=== PATIENT | male | born 1940 | race Caucasian/White ===

== ENCOUNTER 2016-07-26 17:43 | Inpatient (IN) | payer MEDICARE, OTHER ==
[2016-07-26 18:30] LABS: Hematocrit 37.1 % (42.0-52.0); Hemoglobin 12.8 gm/dL (13.5-18.0); Mean Cell Volume 85.9 fl (78-100); Mean Corpuscular Hemoglobin 29.6 pg (27-31); Mean Corpuscular Hgb Conc 34.5 g/dl (32-36); Mean Platelet Volume 9.4 fl (6.0-9.5); Platelet Count 366 K/mm3 (150-450); Red Blood Count 4.32 M/mm3 (4.7-6.0); Red Cell Distribution Width 12.2 % (11.5-14.0); White Blood Count 21.9 K/mm3 (4.0-10.5)
[2016-07-26 18:41] LABS: Total Cells Counted 100
[2016-07-26 18:43] LABS: Albumin * 2.6 gm/dl (3.4-5.0); Anion Gap 18.3 mmol/L (6.8-13.8); Bilirubin, Total 0.3 mg/dL (0.0-1.1); Ca. Corrected For Albumin 10.1 mg/dL (8.4-10.2); Calcium * 9.3 mg/dL (7.9-10.9); Carbon Dioxide 25.6 mmol/L (24-32.6); Potassium 3.9 mmol/L (3.4-4.6); Total Protein 7.2 gm/dL (6.2-8.2)
[2016-07-26 18:59] LABS: Atypical (Reactive) Lymph 2 % (0-2); Eosinophil 1 % (0-3); Immature Granulocyte 1 (0-1); Lymphocyte 10 % (20-51); Monocyte 4 % (0-9); Neutrophil 82 % (42-75); Platelet Estimate Normal (NORMAL)
[2016-07-26 19:00] LABS: RBC Morphology Normal (NORMAL)
[2016-07-26 19:01] LABS: Dohle Bodies 1+; Toxic Granulation 2+
[2016-07-26 20:04] LABS: Troponin I Less than 0.017 ng/ml (0.00-0.10)
--- OUTSIDE RECORDS SUMMARY | 2016-07-26 20:05 | XMS REPORT | Continuity of Care Document ---
:1940 Author Organization [facility] ([facility]) Address [address] [place] [address] Phone [phone] Care Team Providers Name Role Phone Provider, No-Primary Care Primary Care Provider Unavailable Source Comments This disclosure is being made pursuant to the Care Everywhere program, applicable federal and state laws, and may not contain all informaitonavailable regarding this patient.[facility] ([facility]) Active Allergies and Adverse Reactions Allergen Noted Date Severity Reactions Comments Penicillins Urticaria (Hives) Penicillins 05/27/2012 Urticaria (Hives) Tetanus Toxoid, Adsorbed OTHER per outside records Current Medications Prescription Sig. Disp. Refills Start Date End Date Status albuterol 90 Use 2 Puffs by 1 Inhaler 09/22/2012 Active mcg/Actuation inhaler inhalation every 6 hours as needed. Indications: CHRONIC OBSTRUCTIVE PULMONARY DISEASE fosinopril 10 mg Take 1 tablet (10 30 tablet 08/26/2015 Active tablet mg total) by mouth daily. furosemide 20 mg Take 1 tablet (20 60 tablet 08/26/2015 Active tablet mg total) by mouth daily. simvastatin 20 mg Take 1 tablet (20 30 tablet 08/26/2015 Active tablet mg total) by mouth every evening. spironolactone 25 mg Take 1 tablet (25 60 tablet 08/26/2015 Active tablet mg total) by mouth 2 times daily. tiotropium (SPIRIVA) Use 1 capsule by 30 capsule 08/26/2015 Active 18 mcg inhalation inhalation daily. capsule sildenafil 20 mg Take 3-5 tablets 30 tablet 10/10/2015 Active tablet (60-100 mg total) by mouth daily as needed. SYMBICORT 160-4.5 INHALE TWO PUFFS 6 g 03/09/2016 Active mcg/Actuation inhaler TWICE DAILY digoxin 125 mcg Take 1 tablet (125 30 tablet 11 06/04/2016 Active tablet mcg total) by mouth daily. Active Problems Problem Noted Date COPD (chronic obstructive pulmonary disease) 12/21/2012 CHF (congestive heart failure) 12/21/2012 Most Recent Encounters Date Type Specialty Providers Description 07/07/2016 Telephone [place] - Primary Mariana Chandler LPN 06/24/2016 Telephone [place] - Primary Adrienne Pickard Chief Comp: Miguelina Merrill LPN for Prescription 06/18/2016 Office Visit [place] Nick Jarrell, Dx: 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 (Primary Dx) 06/04/2016 Refill Juliano Akers - [facility] Nick Domingo Dx: Chronic systolic DO heart failure (Primary Dx) Immunizations Name Dates Previously Given Next Due Pneumococcal Polysaccharide, PPSV23 (Pneumovax 23) 12/29/2012 Social History Tobacco Use Types Packs/Day Years Used Date Former Smoker Cigarettes 3 50 Quit: 05/12/2008 Smokeless Tobacco: Former User Quit: 12/01/2012 Last Filed Vital Signs Vital Sign Reading Time Taken Blood Pressure 114/44 06/18/2016 10:44 AM CDT Pulse 108 06/18/2016 10:44 AM CDT Temperature 36.9 C (98.5 F) 06/18/2016 10:44 AM CDT Respiratory Rate 20 06/18/2016 10:44 AM CDT Height 1.753 m (5' 9") 03/30/2013 1:22 PM 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
[2016-07-26 20:22] LABS: BNP * 213 pg/mL (5-650)
--- NOTE | 2016-07-26 20:25 | ERNOTE ---
Medical Problem HPI - Narrative Date of Service: 07/26/16 - General Chief Complaint: General Assessment Time Seen by Provider: 07/26/16 19:45 Source: patient Exam Limitations: no limitations - Immun/Allergies/Home Medications Immunizations: IMMUNIZATION HX History of Influenza Vaccine Yes Allergies/Adverse Reactions: Allergies penicillin G Allergy (Verified 07/26/16 17:56) Home Medications: HOME MEDICATIONS Budesonide/Formoterol Fumarate [Symbicort 160-4.5 Mcg Inhaler] 2 puff IH BID [Last Taken Unknown] Digoxin [Lanoxin] 0.125 mg PO DAILY 07/26/16 [Last Taken Unknown] Fosinopril Sodium 10 mg PO DAILY 07/26/16 [Last Taken Unknown] Furosemide [Lasix] 20 mg PO DAILY 07/26/16 [Last Taken Unknown] Simvastatin [Zocor] 20 mg PO HS 07/26/16 [Last Taken Unknown] Spironolactone [Aldactone] 12.5 mg PO BID@0900,1700 07/26/16 [Last Taken Unknown ] Tiotropium [place] [Spiriva] 1 cap IH DAILY 07/26/16 [Last Taken Unknown] predniSONE [Prednisone] 10 mg PO DAILY 07/26/16 [Last Taken Unknown] - History of Present History Narrative: Pt. comes in with c/o SOB, chest tightness, increased urination, increased forgetfulness, and increased falls. Pt. has a hx of CAD, CHF, and COPD, pt states he uses o2 at [facility]. Review of Systems - Review of Systems Constitutional: Present: no symptoms reported. Absent: recent illness, fever, chills, weakness, fatigue, malaise EYE: Present: no symptoms reported ENT: Present: no symptoms reported Respiratory: Present: shortness of breath, cough. Absent: wheezing Cardiology: Present: chest pain. Absent: palpitations, edema Gastrointestinal/Abdominal: Present: no symptoms reported. Absent: nausea, vomiting, diarrhea, abdominal pain Genitourinary: Present: frequency. Absent: pain, dysuria, decreased urinary output Musculoskeletal: Present: no symptoms reported. Absent: back pain, joint pain Skin: Present: no symptoms reported. Absent: rash, dryness, change in color Neurological: Present: no symptoms reported. Absent: headache, dizziness/light- headedness, numbness, tingling All Other Systems: All systems neg except as marked - Patient's Past Medical History Patient History - Medical: No pertinent hx Patient History - Cardiac/Respiratory: CHF, COPD, Hypertension, Hyperlipidemia Patient History - Cancer: No Hx of Cancer Patient History - Surgical Procedures: No surgical history Patient History - Other: None - Social History Living Situations: home Psych History: No pertinent hx Smoking Status: Former smoker Have you smoked in the past 12 months: No Alcohol Use: none Drug Use: none - Immunizations History of Influenza Vaccine: Yes Physical Exam - Physical Exam General Appearance: Present: wd/wn, alert, no apparent distress Eye Exam: Normal inspection: bilateral, PERRL: bilateral, EOMI: bilateral Ears, Nose, Throat: Present: normal ENT inspection, normal pharynx Neck: Present: normal inspection, nontender. Absent: lymphadenopathy (R), lymphadenopathy (L) Respiratory: Present: no respiratory distress, no accessory muscle use, decreased breath sounds Cardiovascular/Chest: Present: regular rate, rhythm, normal peripheral pulses, systolic murmur Gastrointestinal/Abdominal: Present: normal bowel sounds, nontender, nondistended, soft, no organomegaly Back Exam: Present: normal inspection, normal range of motion, no CVA tenderness , no vertebral tenderness Extremity Exam: Present: normal inspection, non-tender, normal range of motion, no edema Neurological Exam: Present: alert, oriented, normal mood/affect, no motor/ sensory deficits Skin Exam: Present: normal color, warm/dry. Absent: pallor, skin rash ED Progress - Date and Time Seen: Date and Time: 07/26/16 22:44 Discussed case with Betty and she agrees to admit pt. for pneumonia and sepsis. - Results and Orders Patient's Lab Results:: I have reviewed the patient's lab results. - Vital Signs Patient's Vital Signs:: I have reviewed the patient's vital signs. Vital Signs: Vital Signs 07/26/16 07/26/16 17:46 19:30 Temperature 36.4 C L Pulse Rate 115 H 111 H Respiratory 12 20 Rate Blood Pressure 105/58 124/68 O2 Sat by Pulse 95 93 Oximetry - EKG EKG: other - sinus tach - X-Ray X-Ray #1 X-Ray: chest Interpretation: Reviewed by me X-ray Comments: IMPRESSION: 1. Left hilar prominence as detailed above. If concern persists consider CT scan. 2. Nodular density right midlung measuring approximately 8 mm[address] chest CT may be advised 3. Appearance of posterior mediastinal mass again should be evaluated with CT scan - CT/Ultrasound CT/Ultrasound Narrative: CT chest with Focal consolidation LLL and pulmonary nodules and mediastinal lymphadenopathy. - Progress/Reassessment Chief Complaint: General Assessment Progress:: Unchanged Departure - Departure Clinical Impression: Pneumonia Qualifiers: Pneumonia type: due to unspecified organism Laterality: left Lung location: lower lobe of lung Qualified Code(s): J18.1 - Lobar pneumonia, unspecified organism Sepsis Qualifiers: Sepsis type: sepsis due to unspecified organism Qualified Code(s): A41.9 - Sepsis, unspecified organism Disposition: [facility] Condition: Serious Referrals: Nick Domingo DO [Primary Care Provider] -
[2016-07-26] MEDS ORDERED: NORMAL SALINE 1,000 ML IV ONE (20:46)
[2016-07-26 20:57] LABS: Urine Bilirubin Negative (NEGATIVE); Urine Blood Negative /ul (NEGATIVE); Urine Ketone Negative (NEGATIVE); Urine Nitrite Negative (NEGATIVE); Urine Protein Negative (NEGATIVE); Urine Specific Gravity 1.015 SP.GR. (1.005-1.030); Urine Urobilinogen Normal (NORMAL); Urine pH 5.5 pH (5.0-7.0)
[2016-07-26 21:06] LABS: Urine Appearance Clear; Urine Color Yellow
[2016-07-26 21:07] LABS: Urine Bacteria None Seen; Urine Hyaline Cast 0-5 /LPF; Urine RBC None Seen /hpf (0-5); Urine WBC None Seen /hpf (0-5)
--- OUTSIDE RECORDS SUMMARY | 2016-07-26 22:51 | XMS REPORT | Continuity of Care Document ---
:1940 Author Organization [facility] ([facility]) Address [address] [place] [address] Phone [phone] Care Team Providers Name Role Phone Provider, No-Primary Care Primary Care Provider Unavailable Source Comments This disclosure is being made pursuant to the Care Everywhere program, applicable federal and state laws, and may not contain all informaitonavailable regarding this patient.[facility] ([facility]) Active Allergies and Adverse Reactions Allergen [...] - Primary Mariana Chandler LPN 06/24/2016 Telephone [place] - Primary Adrienne Pickard Chief Comp: Miguelina Merrill LPN for Prescription 06/18/2016 Office Visit [place] Nick Jarrell, Dx: 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 (Primary Dx) 06/04/2016 Refill Juliano Akers - [facility] Nick Domingo Dx: Chronic systolic DO heart [...] 1.753 m (5' 9") 03/30/2013 1:22 PM MANAGER ATHLETICS Weight 83.371 kg (183 lb 12.8 oz) 06/18/2016 10:44 AM CDT Body Mass Index 27.13 06/18/2016 10:44 AM CDT Oxygen Saturation 93% 02/07/2015 11:49 AM MANAGER ATHLETICS Plan of Care Health Maintenance Due Date [...]
[2016-07-26] MEDS: LEVOFLOXACIN/D5W 750 MG/150 ML BAG IV SCH (22:59)
[2016-07-26] MEDS ORDERED: ACETAMINOPHEN 325 MG TABLET ONE (23:06)
[2016-07-26] MEDS: ACETAMINOPHEN 325 MG TABLET PO PRN (23:07)
[2016-07-27] MEDS: NORMAL SALINE 1,000 ML IV PRN ×3 (00:21→23:12)
--- NOTE | 2016-07-27 00:39 | HP ---
<Betty Purcell - Last Filed: 07/27/16 02:30> Chief Complaint - Chief Complaint Date of Service: 07/27/16 Time of Service: 00:36 Chief Complaint: SOB History of Present Illness: Pt is a 75 year old male pt of Dr. Domingo who presented to the ER with multiple nonspecific complaints this evening. He states all of which began about a month ago, complaints include SOB, increased urination and hesitancy, increased forgetfulness (per ), increased falls, bilateral shoulder pain, and decreased appetite. Pt has a hx of a-fib, CHF, HTN, and COPD-uses o2 at HS. Upon further questioning he also endorses +wt loss, +dizziness, +cold sweats at night, +poor appetite, trouble sleeping due to urine frequency. Denies n/v/d, fever, cough, wheezing, hematuria/foul odor/dysuria, or CP. 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 In the ER workup revealed LL consolidation, lactic acidosis(3.2), leukocytosis (WBC 21.9), hypotension (SBP 90-100), and tachycardia (HR 100-120). He will need to be admitted to in pt for further testing and treatment starting with sepsis protocol. I suspect that he will require greater than a 2 midnight stay. - Patient's Past Medical History Patient History - Medical: Alcohol Abuse, Arthritis Patient History - Cardiac/Respiratory: Atrial Fibrillation, CHF, COPD, Hypertension, Hyperlipidemia, Home O2 Use Patient History - Cancer: No Hx of Cancer Patient History - Surgical Procedures: No surgical history Patient History - Other: None - Family History Mother Family History - Medical: Family History - Cardiac/Respiratory: Coronary Heart Disease, COPD Father Family History - Medical: Family History - Cardiac/Respiratory: COPD, Myocardial Infarction Family History - Cancer: Lung - Social History Living Situations: home Psych History: No pertinent hx Smoking Status: Former smoker Have you smoked in the past 12 months: No Alcohol Use: heavy - 1-2 glasses of wine and 2-3 mixed drinks Drug Use: none - Immunizations Immunizations Up to Date: Yes Hx Pneumococcal Vaccination: Yes History of Influenza Vaccine: Yes Review Of Systems (GEN) - Review of Systems Generalized/Overall Review: Present: Weakness, Chills, Fatigue, Weight loss EENTM: Present: Nose Congestion Respiratory: Present: Shortness of Breath Cardiac: Present: No Symptoms Reported Abdominal: Present: No Symptoms Reported Genitourinary: Present: Frequency, Hesitancy, Dribbling, Nocturia Musculoskeletal: Present: Joint Pain Neurological: Present: No Symptoms Reported Skin: Present: No Symptoms Reported Endocrine: Present: No Symptoms Reported Immunizations: IMMUNIZATION HX History of Influenza Vaccine Yes Allergies/Adverse Reactions: Allergies Allergy/AdvReac Type Severity Reaction Status Date / Time penicillin G Allergy Verified 07/26/16 17:56 Home Medications: HOME MEDICATIONS Budesonide/Formoterol Fumarate [Symbicort 160-4.5 Mcg Inhaler] 2 puff IH BID [Last Taken Unknown] Digoxin [Lanoxin] 0.125 mg PO DAILY 07/26/16 [Last Taken Unknown] Fosinopril Sodium 10 mg PO DAILY 07/26/16 [Last Taken Unknown] Furosemide [Lasix] 20 - 40 mg PO DAILY 07/26/16 [Last Taken Unknown] Simvastatin [Zocor] 20 mg PO HS 07/26/16 [Last Taken Unknown] Spironolactone [Aldactone] 25 mg PO BID@0900,1700 07/26/16 [Last Taken Unknown] Tiotropium [place] [Spiriva] 1 cap IH DAILY 07/26/16 [Last Taken Unknown] predniSONE [Prednisone] 10 mg PO DAILY 07/26/16 [Last Taken Unknown] Exam - Exam Vital Signs: Vital Signs - Last Taken Temp 37.0 C 07/27/16 00:05 Pulse 117 H 07/27/16 00:05 Resp 20 07/27/16 00:05 BP 145/63 07/27/16 00:05 Pulse Ox 92 RA 07/27/16 00:05 Constitutional: Present: Alert, Oriented x3, Cooperative, No distress, Elderly, Overweight ENT Exam: Present: normal ENT inspection, hearing grossly normal Eye Exam: bilateral eye: normal inspection, PERRL Back Exam: Present: normal inspection Respiratory: Present: chest non-tender, lungs clear, no respiratory distress, no accessory muscle use, decreased breath sounds Cardiovascular/Chest: Present: normal peripheral pulses, no chest tenderness, no edema, no gallop, no JVD, no murmur Peripheral Pulses: dorsalis-pedis (R): 2+, dorsalis-pedis (L): 2+, radial (R): 2 +, radial (L): 2+ Abdomen: Present: Normal bowel sounds, soft, nontender, nondistended, no rebound tenderness, no hepatospenomegaly Extremity: Present: normal inspection, no calf tenderness, normal capillary refill, claudication, other - left should with limited ROM d/t pain. No erythema or warmth appreciated Skin Exam: Present: normal color, warm/dry, no cyanosis Lymphatic: Present: no adenopathy Neurologic: Present: no motor/sensory deficits, alert, normal mood/affect, oriented x 3 Appearance: Present: appropriate appearance, appropriate insight, neat, no memory impairment Eye contact: Present: cooperative, good eye contact, normal speech Thoughts: Present: normal thought pattern, no apparent hallucination Diagnostic Studies: Abnormal Lab Results 07/26/16 07/26/16 Range/Units 22:55 22:55 Lactic Acid, Venous 2.2 H* (0.4-1.9) mmol/L Ethyl Alcohol 22.0 H (0.0-10.0) mg/dL Laboratory Results Laboratory Tests 07/26/16 07/26/16 07/26/16 18:26 18:26 19:44 WBC 21.9 H RBC 4.32 L Hgb 12.8 L Hct 37.1 L Plt Count 366 Neutrophils % (Manual) 82 H Lymphocytes % (Manual) 10 L Neutrophils # (Manual) 18.0 H Sodium 129 L Potassium 3.9 Chloride 89 L Carbon Dioxide 25.6 Anion Gap 18.3 H BUN 21 D Creatinine 1.00 Lactic Acid, Venous 3.2 H* Total Bilirubin 0.3 AST 49 H Troponin I B-Natriuretic Peptide Urine Color Urine Ketones Ur Leukocyte Esterase Urine Bacteria Ethyl Alcohol 07/26/16 07/26/16 07/26/16 20:01 20:20 22:55 WBC RBC Hgb Hct Plt Count Neutrophils % (Manual) Lymphocytes % (Manual) Neutrophils # (Manual) Sodium Potassium Chloride Carbon Dioxide Anion Gap BUN Creatinine Lactic Acid, Venous 2.2 H* Total Bilirubin AST Troponin I Less than 0.017 B-Natriuretic Peptide 213 Urine Color Yellow Urine Ketones Negative Ur Leukocyte Esterase Negative Urine Bacteria None seen Ethyl Alcohol 07/26/16 22:55 WBC RBC Hgb Hct Plt Count Neutrophils % (Manual) Lymphocytes % (Manual) Neutrophils # (Manual) Sodium Potassium Chloride Carbon Dioxide Anion Gap BUN Creatinine Lactic Acid, Venous Total Bilirubin AST Troponin I B-Natriuretic Peptide Urine Color Urine Ketones Ur Leukocyte Esterase Urine Bacteria Ethyl Alcohol 22.0 H Assessment/Plan - Assessment/Plan (1) Sepsis Assessment: Plan: -Bolus per sepsis protocol -Lactic acid in am -MIVF NS @ 126ml/hr -CMP/CBC in am -BC pending Problem: Acute QualifierTitle: Sepsis type: sepsis due to unspecified organism Qualified Code(s): A41.9 - Sepsis, unspecified organism (2) Pneumonia Assessment: CT with findings as followed: focal consolidation of the LL lobe, multiple small pulmonary nodules in right lower lobe-recommend attention on follow up, and emphysematous changes in both lungs. Due to pt concerning reports of night sweats, weight loss, increased SOB will also work up for potential malignancy. Plan: -Levaquin 750mg IV daily -IS -LD, ESR, Sed rate -CBC/CMP in am -O2 @ HS per home -Sputum culture -Urine legonella Problem: Acute QualifierTitle: Pneumonia type: due to unspecified organism Laterality: left Lung location: lower lobe of lung Qualified Code(s): J18.1 - Lobar pneumonia, unspecified organism (3) CHF (congestive heart failure) Assessment: No evidence of pulmonary congestion on CT or xray. BNP on arrival 213, will monitor closely for s/s of volume overload with fluid resuscitation per sepsis protocol. Continue home dose of lasix and spironolactone. Labs in am, daily wt, strict i/o, low NA+ diet. Plan: -Low Na+ diet -Stict i/o -Daily wt -Lasix 40mg PO daily -Spironolactone 12.5 PO BID -CMP in am Problem: Chronic QualifierTitle: Congestive heart failure type: unspecified congestive heart failure type (4) COPD (chronic obstructive pulmonary disease) Assessment: Stable, chronic condition. Continue home medications as prescribed. Plan: -Spiriva -Prednisone 10mg PO daily -Symbicort Problem: Chronic QualifierTitle: COPD type: unspecified COPD Qualified Code(s): J44.9 - Chronic obstructive pulmonary disease, unspecified (5) AA (alcohol abuse) Assessment: Per drinks daily, blood ETOH on arrival 22. Will place on CIWA protocol and order banana bag daily. Plan: -CIWA protocol -Banana bag daily Problem: Chronic (6) Arthritis Assessment: Pt with complaints of bilateral shoulder pain, chronic in nature, however due to recent fall will order xrays in the am. Plan: -Ibuprofen PRN for pain -Biofreeze PRN Problem: Chronic (7) HTN (hypertension) Assessment: Stable, continue home medication as prescribed. Plan: -Fosinopril 10mg daily -VS Q4H -Telemetry Problem: Acute (8) A-fib Assessment: Pt on digoxin daily, will continue. Add TSH level to previous drawn labs, HR ~ 100-120 could be elevated d/t infection, but cannot exclude other etiologies as well. Plan: -Digoxin 0.125mg daily -Telemetry -VS Q4H -TSH Problem: Chronic QualifierTitle: Atrial fibrillation type: chronic Qualified Code(s): I48.2 - Chronic atrial fibrillation (9) Urinary hesitancy Assessment: UA negative, will check PSA. Plan: -PSA level Problem: Acute <Jamey Camp - Last Filed: 07/27/16 18:17> Immunizations: IMMUNIZATION HX Immunizations Up to Date Yes History of Influenza Vaccine Yes Hx Pneumococcal Vaccination Yes Exam - Exam Vital Signs: Vital Signs - Last Taken Temp 37.4 C 07/27/16 15:00 Pulse 97 07/27/16 15:00 Resp 16 07/27/16 15:00 BP 143/65 07/27/16 15:00 Pulse Ox 97 07/27/16 15:00 Diagnostic Studies: Abnormal Lab Results 07/27/16 07/27/16 07/27/16 Range/Units 05:35 05:35 05:35 WBC 14.9 H D (4.0-10.5) K/mm3 RBC 3.98 L (4.7-6.0) M/mm3 Hgb 11.7 L (13.5-18.0) gm/dL Hct 34.2 L (42.0-52.0) % Immature Gran % (Auto) 3.20 H (0.001-0.429) % Immature Gran # (Auto) 0.48 H (0.000-0.0310) K/mm3 Neutrophils % 81.2 H (42-75.0) % Lymphocytes % 5.8 L (20-51) % Monocytes % 9.2 H (0.0-9) % Neutrophils # 12.1 H (1.3-6.0) K/mm3 Lymphocytes # 0.9 L (1.5-3.5) k/mm3 Monocytes # 1.4 H (0.0-1.0) k/mm3 ESR 55 H (0-10) mm/hr Chloride 93 L (97-106) mmol/L Random Glucose 114 H (70-110) mg/dL Laboratory Results WBC 14.9 K/mm3 (4.0-10.5) H D 07/27/16 05:35 RBC 3.98 M/mm3 (4.7-6.0) L 07/27/16 05:35 Hgb 11.7 gm/dL (13.5-18.0) L 07/27/16 05:35 Hct 34.2 % (42.0-52.0) L 07/27/16 05:35 MCV 85.9 fl (78-100) 07/27/16 05:35 MCH 29.4 pg (27-31) 07/27/16 05:35 MCHC 34.2 g/dl (32-36) 07/27/16 05:35 RDW 12.0 % (11.5-14.0) 07/27/16 05:35 Plt Count 258 K/mm3 (150-450) 07/27/16 05:35 MPV 9.3 fl (6.0-9.5) 07/27/16 05:35 Immature Gran % (Auto) 3.20 % (0.001-0.429) H 07/27/16 05:35 Immature Gran # (Auto) 0.48 K/mm3 (0.000-0.0310) H 07/27/16 05:35 Neutrophils % 81.2 % (42-75.0) H 07/27/16 05:35 Neutrophils % (Manual) 82 % (42-75) H 07/26/16 18:26 Lymphocytes % 5.8 % (20-51) L 07/27/16 05:35 Lymphocytes % (Manual) 10 % (20-51) L 07/26/16 18:26 Monocytes % 9.2 % (0.0-9) H 07/27/16 05:35 Monocytes % (Manual) 4 % (0-9) 07/26/16 18:26 Eosinophils % 0.3 % (0.0-3.0) 07/27/16 05:35 Eosinophils % (Manual) 1 % (0-3) 07/26/16 18:26 Basophils % 0.3 % (0.0-1.0) 07/27/16 05:35 Nucleated RBC % 0.0 k/mm3 (0-1) 07/27/16 05:35 Immature Granulocytes 1 (0-1) 07/26/16 18:26 Neutrophils # 12.1 K/mm3 (1.3-6.0) H 07/27/16 05:35 Neutrophils # (Manual) 18.0 K/mm3 (1.3-6.0) H 07/26/16 18:26 Lymphocytes # 0.9 k/mm3 (1.5-3.5) L 07/27/16 05:35 Lymphocytes # (Manual) 2.2 k/mm3 (1.5-3.5) 07/26/16 18:26 Monocytes # 1.4 k/mm3 (0.0-1.0) H 07/27/16 05:35 Monocytes # (Manual) 0.9 k/mm3 (0.0-1.0) 07/26/16 18:26 Eosinophils # 0.1 k/mm3 (0.0-0.7) 07/27/16 05:35 Eosinophils # (Manual) 0.2 k/mm3 (0.0-0.7) 07/26/16 18:26 Absolute Basophils 0.0 k/mm3 (0.0-0.1) 07/27/16 05:35 Atypic/Reactive Lymphs 2 % (0-2) 07/26/16 18:26 Toxic Granulation 2+ 07/26/16 18:26 Dohle Bodies 1+ 07/26/16 18:26 Platelet Estimate Normal (NORMAL) 07/26/16 18:26 RBC Morphology Normal (NORMAL) 07/26/16 18:26 ESR 55 mm/hr (0-10) H 07/27/16 05:35 Sodium 132 mmol/L (132-142) 07/27/16 05:35 Plasma Sodium 132 mmol/L (130-142) 07/27/16 05:35 Potassium 4.0 mmol/L (3.4-4.6) 07/27/16 05:35 Chloride 93 mmol/L (97-106) L 07/27/16 05:35 Carbon Dioxide 30.3 mmol/L (24-32.6) 07/27/16 05:35 Anion Gap 12.7 mmol/L (6.8-13.8) 07/27/16 05:35 BUN 16 mg/dL (6-23) 07/27/16 05:35 Creatinine 0.82 mg/dL (0.4-1.4) 07/27/16 05:35 Est GFR (Non-Af Amer) 97 mL/min (60-130) D 07/27/16 05:35 BUN/Creatinine Ratio 19.5 (9.0-21.6) 07/27/16 05:35 Random Glucose 114 mg/dL (70-110) H 07/27/16 05:35 Lactic Acid, Venous 1.3 mmol/L (0.4-1.9) 07/27/16 05:35 Calcium 8.8 mg/dL (7.9-10.9) 07/27/16 05:35 Calcium Adj for Albumin 10.1 mg/dL (8.4-10.2) 07/26/16 18:26 Magnesium 1.6 mg/dL (1.2-2.8) 07/27/16 05:35 Total Bilirubin 0.3 mg/dL (0.0-1.1) 07/26/16 18:26 AST 49 U/L (0-48) H 07/26/16 18:26 ALT 40 U/L (19-67) 07/26/16 18:26 Alkaline Phosphatase 93 U/L (50-170) 07/26/16 18:26 Lactate Dehydrogenase 1126 U/L (85-227) H 07/27/16 00:01 Troponin I Less than 0.017 ng/ml (0.00-0.10) 07/26/16 20:01 C-Reactive Prot, Quant 27.9 mg/dL (0.0-0.9) H 07/27/16 00:01 B-Natriuretic Peptide 213 pg/mL (5-650) 07/26/16 20:01 Total Protein 7.2 gm/dL (6.2-8.2) 07/26/16 18:26 Albumin 2.6 gm/dl (3.4-5.0) L 07/26/16 18:26 Amylase 65 U/L (25-115) 07/27/16 05:35 Lipase 119 U/L (73-393) 07/27/16 05:35 Prostate Specific Ag 2.81 ng/mL (0.00-4.00) 07/27/16 00:01 TSH 1.067 uIU/mL (0.358-3.74) 07/27/16 00:01 Urine Color Yellow 07/26/16 20:20 Urine Appearance Clear 07/26/16 20:20 Urine pH 5.5 pH (5.0-7.0) 07/26/16 20:20 Ur Specific [place] 1.015 SP.GR. (1.005-1.030) 07/26/16 20:20 Urine Protein Negative mg/dL (NEGATIVE) 07/26/16 20:20 Urine Glucose (UA) Negative mg/dL (NEGATIVE) 07/26/16 20:20 Urine Ketones Negative mg/dL (NEGATIVE) 07/26/16 20:20 Urine Blood Negative /ul (NEGATIVE) 07/26/16 20:20 Urine Nitrate Negative (NEGATIVE) 07/26/16 20:20 Urine Bilirubin Negative mg/dl (NEGATIVE) 07/26/16 20:20 Urine Urobilinogen Normal EU/dl (NORMAL) 07/26/16 20:20 Ur Leukocyte Esterase Negative /ul (NEGATIVE) 07/26/16 20:20 Urine RBC None seen /hpf (0-5) 07/26/16 20:20 Urine WBC None seen /hpf (0-5) 07/26/16 20:20 Ur Epithelial Cells None seen /hpf (0-5) 07/26/16 20:20 Urine Bacteria None seen (NONE) 07/26/16 20:20 Hyaline Casts 0-5 /LPF (NONE) H 07/26/16 20:20 Urine Culture Comments No culture indicated 07/26/16 20:20 Digoxin 0.6 ng/mL (0.5-2.0) 07/27/16 05:35 Ethyl Alcohol 22.0 mg/dL (0.0-10.0) H 07/26/16 22:55 Assessment/Plan - Narrative Narrative: Record reviewed, patient examined. I personally directed all of our nurse practitioner hospitatlist's care for this patient. Already he wants to go home and not stay in the hospital any longer. He will, I think, at least stay until tomorrow morning.
[2016-07-27] MEDS ORDERED: IBUPROFEN 600 MG TABLET PO PRN (00:40)
[2016-07-27] MEDS ORDERED: ALBUTEROL SULFATE 2.5 MG/3 ML VIAL.NEB IH PRN (01:00)
[2016-07-27] MEDS ORDERED: LORazepam 1 MG TABLET PO PRN ×3 (01:16)
[2016-07-27] MEDS: MULTIVIT INFUSN,ADULT 4,VIT K 10 ML, THIAMINE HCL 100 MG in DEXTROSE 5 % IN WATER 1,000 ML IV SCH ×6 (01:48→10:10)
[2016-07-27 02:32] LABS: TSH * 1.067 uIU/mL (0.358-3.74)
[2016-07-27 02:53] LABS: CRP 27.9 mg/dL (0.0-0.9)
[2016-07-27 05:44] LABS: Hematocrit 34.2 % (42.0-52.0); Hemoglobin 11.7 gm/dL (13.5-18.0); Mean Cell Volume 85.9 fl (78-100); Mean Corpuscular Hemoglobin 29.4 pg (27-31); Mean Corpuscular Hgb Conc 34.2 g/dl (32-36); Mean Platelet Volume 9.3 fl (6.0-9.5); Neutrophil # 12.1 K/mm3 (1.3-6.0); Neutrophil % 81.2 % (42-75.0); Platelet Count 258 K/mm3 (150-450); Red Blood Count 3.98 M/mm3 (4.7-6.0); White Blood Count 14.9 K/mm3 (4.0-10.5)
[2016-07-27 06:01] LABS: Anion Gap 12.7 mmol/L (6.8-13.8); BUN/Creatinine Ratio 19.5 (9.0-21.6); Calcium * 8.8 mg/dL (7.9-10.9); Carbon Dioxide 30.3 mmol/L (24-32.6); Estimated Creat Clear 77.8
[2016-07-27 07:10] LABS: Amylase * 65 U/L (25-115); Lipase 119 U/L (73-393)
[2016-07-27 07:48] LABS: Digoxin 0.6 ng/mL (0.5-2.0); Magnesium 1.6 mg/dL (1.2-2.8)
[2016-07-27] MEDS: FLUTICASONE/SALMETEROL 14 PUFF DISK.W.DEV IH SCH ×2 (07:50→20:11)
[2016-07-27] MEDS: FOLIC ACID 1 MG TABLET PO SCH (08:12)
[2016-07-27] MEDS: ACETAMINOPHEN 325 MG TABLET PO PRN ×2 (08:12→12:18)
[2016-07-27] MEDS: THIAMINE HCL 100 MG TABLET PO SCH (08:13)
[2016-07-27] MEDS: MULTIVITAMINS 1 CAP CAPSULE PO SCH (08:13)
[2016-07-27] MEDS: TIOTROPIUM BROMIDE 5 CAP INHALER IH SCH (08:13)
[2016-07-27] MEDS: DIGOXIN 0.125 MG TABLET PO SCH (08:14)
[2016-07-27] MEDS: SPIRONOLACTONE 25 MG TABLET PO SCH ×2 (08:14→16:05)
[2016-07-27] MEDS: LISINOPRIL 10 MG TABLET PO SCH (08:14)
[2016-07-27] MEDS: predniSONE 10 MG TABLET PO SCH (08:14)
[2016-07-27] MEDS ORDERED: FUROSEMIDE 20 MG TABLET PO SCH (09:00)
[2016-07-27] MEDS: OLOPATADINE HCL 50 DROP BTL EACHEYE SCH ×2 (14:30→20:13)
[2016-07-27] MEDS ORDERED: chlordiazePOXIDE HCL 10 MG CAPSULE PO PRN (15:44)
[2016-07-27] MEDS ORDERED: HYDROcodone/ACETAMINOPHEN 1 EACH TABLET PO PRN (15:44)
[2016-07-27] MEDS ORDERED: TUBERCULIN,PURIF.PROT.DERIV. 5 TU/0.1 ML SYRINGE ID ONE (16:00)
[2016-07-27] MEDS ORDERED: OXYBUTYNIN CHLORIDE 5 MG TABLET PO SCH (21:00)
[2016-07-27] MEDS ORDERED: SIMVASTATIN 20 MG TABLET PO SCH (21:00)
[2016-07-27] MEDS: HYDROcodone/ACETAMINOPHEN 1 EACH TABLET PO PRN (22:29)
[2016-07-27] MEDS: LEVOFLOXACIN/D5W 750 MG/150 ML BAG IV SCH (23:13)
[2016-07-28] MEDS: HYDROcodone/ACETAMINOPHEN 1 EACH TABLET PO PRN (04:19)
[2016-07-28 07:09] LABS: Hematocrit 35.9 % (42.0-52.0); Hemoglobin 12.1 gm/dL (13.5-18.0); Mean Corpuscular Hemoglobin 29.7 pg (27-31); Mean Corpuscular Hgb Conc 33.7 g/dl (32-36); Mean Platelet Volume 9.3 fl (6.0-9.5); Neutrophil # 10.9 K/mm3 (1.3-6.0); Neutrophil % 80.5 % (42-75.0); Platelet Count 249 K/mm3 (150-450); Red Blood Count 4.08 M/mm3 (4.7-6.0); Red Cell Distribution Width 12.2 % (11.5-14.0); White Blood Count 13.5 K/mm3 (4.0-10.5)
[2016-07-28 07:25] LABS: Anion Gap 9.8 mmol/L (6.8-13.8); BUN/Creatinine Ratio 18.8 (9.0-21.6); Bilirubin, Total 0.8 mg/dL (0.0-1.1); Ca. Corrected For Albumin 10.4 mg/dL (8.4-10.2); Calcium * 9.1 mg/dL (7.9-10.9); Carbon Dioxide 31.4 mmol/L (24-32.6); Potassium 4.2 mmol/L (3.4-4.6); Total Protein 5.8 gm/dL (6.2-8.2)
[2016-07-28] MEDS: FLUTICASONE/SALMETEROL 14 PUFF DISK.W.DEV IH SCH (07:40)
[2016-07-28 08:44] VITALS: BP 125/60
[2016-07-28] MEDS: THIAMINE HCL 100 MG TABLET PO SCH (08:48)
[2016-07-28] MEDS: SPIRONOLACTONE 25 MG TABLET PO SCH (08:48)
[2016-07-28] MEDS: predniSONE 10 MG TABLET PO SCH (08:49)
[2016-07-28] MEDS: MULTIVITAMINS 1 CAP CAPSULE PO SCH (08:49)
[2016-07-28] MEDS: ACETAMINOPHEN 325 MG TABLET PO PRN (08:49)
[2016-07-28] MEDS: DIGOXIN 0.125 MG TABLET PO SCH (08:49)
[2016-07-28] MEDS: FOLIC ACID 1 MG TABLET PO SCH (08:50)
[2016-07-28] MEDS: TIOTROPIUM BROMIDE 5 CAP INHALER IH SCH (08:50)
[2016-07-28] MEDS: LISINOPRIL 10 MG TABLET PO SCH (08:50)
[2016-07-28] MEDS: OLOPATADINE HCL 50 DROP BTL EACHEYE SCH (08:53)
--- NOTE | 2016-07-28 09:49 | DS ---
(1) FTT (failure to thrive) in adult Problem: Acute (2) Abnormal chest CT Problem: Acute (3) HTN (hypertension) Problem: Chronic Qualifiers: Hypertension type: essential hypertension Qualified Code(s): I10 - Essential (primary) hypertension (4) Pneumonia Problem: Acute Qualifiers: Pneumonia type: due to unspecified organism Laterality: bilateral Lung location: lower lobe of lung Qualified Code(s): J18.9 - Pneumonia, unspecified organism (5) Sepsis Problem: Acute Qualifiers: Sepsis type: sepsis due to unspecified organism Qualified Code(s): A41.9 - Sepsis, unspecified organism (6) Urinary hesitancy Problem: Chronic (7) A-fib Problem: Chronic Qualifiers: Atrial fibrillation type: chronic Qualified Code(s): I48.2 - Chronic atrial fibrillation (8) AA (alcohol abuse) Problem: Chronic (9) Arthritis Problem: Chronic (10) CHF (congestive heart failure) Problem: Chronic Qualifiers: Congestive heart failure type: unspecified congestive heart failure type Congestive heart failure chronicity: chronic Qualified Code(s): I50.9 - Heart failure, unspecified (11) COPD (chronic obstructive pulmonary disease) Problem: Chronic Qualifiers: COPD type: unspecified COPD Qualified Code(s): J44.9 - Chronic obstructive pulmonary disease, unspecified Description of Stay: Prompt improvement with antibiotics and fluids. Son with similar complaints. Diagnosis of TB entertained, but doubtful as is improving with usual antibiotics. Refused to stay in hospital beyond today. Agrees to outpatient followup. Did frankly discuss with him the possiblility of lung cancer and the importance of followup. TB studies pending. Procedures Performed: none Discharge Disposition: Home self care Disposition: Home self-care Condition: Serious Discharge Activity: Activity as tolerated Discharge Diet: Low salt Referrals: Nick Domingo DO [Primary Care Provider] - Problem Oriented Discharge Instructions to Patient/Family: Community-Acquired Pneumonia, Adult, [id number] Additional Patient Instructions (free text): Followup with your doctor next week. PET scan of lung this week. Prescriptions (Any new or edited meds): Folic Acid 1 mg PO DAILY #30 tablet Furosemide [Lasix] 20 mg PO DAILY #30 tablet HYDROcodone/ACETAMINOPHEN [[place] 5-325] 1 each PO Q6H PRN #100 tablet PRN Reason: moderate pain Levofloxacin [Levaquin] 750 mg PO DAILY #14 tablet Multivitamins [Multivitamin Ita] 1 cap PO DAILY #30 capsule Olopatadine HCl [Patanol] 1 drop EACHEYE BID #1 btl Oxybutynin Chloride [Ditropan] 5 mg PO HS #30 tablet Thiamine HCl [Vitamin B-1] 100 mg PO DAILY #30 tablet chlordiazePOXIDE HCL [Librium] 10 mg PO HS PRN #30 capsule PRN Reason: Sleep Complete Home Medications List: Complete Home Medication List: Budesonide/Formoterol Fumarate [Symbicort 160-4.5 Mcg Inhaler] 2 puff IH BID Digoxin [Lanoxin] 0.125 mg PO DAILY 07/26/16 Fosinopril Sodium 10 mg PO DAILY 07/26/16 Simvastatin [Zocor] 20 mg PO HS 07/26/16 Spironolactone [Aldactone] 25 mg PO BID@0900,1700 07/26/16 Tiotropium [place] [Spiriva] 1 cap IH DAILY 07/26/16 predniSONE [Prednisone] 10 mg PO DAILY 07/26/16 Acetaminophen [Tylenol] 650 mg PO Q4H PRN #0 tablet 07/28/16 Folic Acid 1 mg PO DAILY #30 tablet 07/28/16 Furosemide [Lasix] 20 mg PO DAILY #30 tablet 07/28/16 HYDROcodone/ACETAMINOPHEN [[place] 5-325] 1 each PO Q6H PRN #100 tablet 07/28/16 Levofloxacin [Levaquin] 750 mg PO DAILY #14 tablet 07/28/16 Multivitamins [Multivitamin Ita] 1 cap PO DAILY #30 capsule 07/28/16 Olopatadine HCl [Patanol] 1 drop EACHEYE BID #1 btl 07/28/16 Oxybutynin Chloride [Ditropan] 5 mg PO HS #30 tablet 07/28/16 Thiamine HCl [Vitamin B-1] 100 mg PO DAILY #30 tablet 07/28/16 chlordiazePOXIDE HCL [Librium] 10 mg PO HS PRN #30 capsule 07/28/16
[2016-07-30 08:58] LABS: QTF Result NEGATIVE
[2016-08-01 18:57] LABS: Histoplasma Ab Yeast Ab <1:8
== END 2016-07-28 11:20 | disposition left against medical advice (07) | DRG 871 ==
LOC: ER 17:43 → MS 22:47 → OBSVTOIN 07-27 02:06 → MS 07-27 15:21
PROVIDERS: ADMIT Nurse Practitioner Gerontology; ATTEND Allergy & Immunology
PROC: HZ2ZZZZ Detoxification Services for Substance Abuse Treatment (ICD-10-PCS; principal; 2016-07-27)
DX: A41.9 Sepsis, unspecified organism (principal); J15.9 Unspecified bacterial pneumonia; J18.9 Pneumonia, unspecified organism; J44.0 Chronic obstructive pulmonary disease with (acute) lower respiratory infection; R00.0 Tachycardia, unspecified; R33.9 Retention of urine, unspecified; F10.10 Alcohol abuse, uncomplicated; Y90.1 Blood alcohol level of 20-39 mg/100 ml; I10 Essential (primary) hypertension; I48.2 Chronic atrial fibrillation; R39.11 Hesitancy of micturition; Z87.891 Personal history of nicotine dependence; Z99.81 Dependence on supplemental oxygen
CPT/HCPCS: 36415; 71020; 71250; 73030; 80048; 80053; 80162; 81001; 82150; 83605; 83615; 83690; 83735; 83880; 84153; 84443; 84484; 85025; 85652; 86140; 86480; 86698; 87015; 87040; 87385; 87449; 93005; 94760; 96365; 99285; G0378; G0481

== ENCOUNTER 2016-07-29 18:31 | Observation (INO) | payer MEDICARE, OTHER ==
--- OUTSIDE RECORDS SUMMARY | 2016-07-29 19:01 | XMS REPORT | Continuity of Care Document ---
:1940 Author Organization [facility] ([facility]) Address [address] [place] [address] Phone [phone] Care Team Providers Name Role Phone Provider, No-Primary Care Primary Care Provider Unavailable Source Comments This disclosure is being made pursuant to the Care Everywhere program, applicable federal and state laws, and may not contain all informaitonavailable regarding this patient.[facility] ([facility]) Active Allergies and Adverse Reactions Allergen [...] Date Type Specialty Providers Description 07/07/2016 Telephone [facility] Mariana Chandler LPN 06/24/2016 Telephone [facility] Adrienne Pickard Chief Comp: Miguelina Merrill LPN for Prescription 06/18/2016 Office Visit [place] [facility] Nick Domingo, Dx: 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 (Primary Dx) 06/04/2016 Refill [facility] Nick Domingo, Dx: Chronic systolic DO heart failure (Primary [...] 1.753 m (5' 9") 03/30/2013 1:22 PM [employer] Weight 83.371 kg (183 lb 12.8 oz) 06/18/2016 10:44 AM CDT Body Mass Index 27.13 06/18/2016 10:44 AM CDT Oxygen Saturation 93% 02/07/2015 11:49 AM [employer] Plan of Care Date Type Specialty Providers Description 08/13/2016 Appointment [facility] Nick Domingo, Chief Comp: Patient DO Reported Reason For [address] Visit [place]EM[place]IE ATKIN[place] [id number] [phone] (Fax) Health Maintenance Due Date Last Done Comments Hepatitis B Vaccine (1 of 3 - Primary Series) 1940 Colonoscopy 1990 Prostate Cancer Screening 1990 Zoster Vaccine 2000 Pneumococcal Vaccine (2 of 2 - PCV13) 12/29/2013 12/29/2012 Influenza Vaccine: Seasonal (Season Ended) 2016 Lipid Disorder Screening 03/26/2018 03/26/2013 Results from Last 3 Months Not on file
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
[2016-07-29 19:16] LABS: Hematocrit 33.4 % (42.0-52.0); Hemoglobin 11.4 gm/dL (13.5-18.0); Mean Cell Volume 86.8 fl (78-100); Mean Corpuscular Hemoglobin 29.6 pg (27-31); Mean Corpuscular Hgb Conc 34.1 g/dl (32-36); Mean Platelet Volume 9.3 fl (6.0-9.5); Platelet Count 263 K/mm3 (150-450); Red Blood Count 3.85 M/mm3 (4.7-6.0); Red Cell Distribution Width 12.3 % (11.5-14.0); White Blood Count 18.6 K/mm3 (4.0-10.5)
[2016-07-29 19:27] LABS: Total Cells Counted 100
[2016-07-29 19:28] LABS: Albumin * 2.1 gm/dl (3.4-5.0); Anion Gap 15.1 mmol/L (6.8-13.8); BUN/Creatinine Ratio 23.5 (9.0-21.6); Bilirubin, Total 0.5 mg/dL (0.0-1.1); Ca. Corrected For Albumin 10.2 mg/dL (8.4-10.2); Carbon Dioxide 25.2 mmol/L (24-32.6); Potassium 4.3 mmol/L (3.4-4.6); Total Protein 6.1 gm/dL (6.2-8.2)
[2016-07-29 19:49] LABS: Hypochromia 1+; Immature Granulocyte 4 (0-1); Lymphocyte 3 % (20-51); Monocyte 2 % (0-9); Neutrophil 91 % (42-75); Neutrophil # 16.9 K/mm3 (1.3-6.0); Platelet Estimate Normal (NORMAL)
[2016-07-29 19:50] LABS: Toxic Granulation 1+
[2016-07-29] MEDS ORDERED: NORMAL SALINE 1,000 ML IV ONE (20:33)
[2016-07-29] MEDS ORDERED: LEVOFLOXACIN/D5W 500 MG/100 ML BAG IV SCH (20:45)
--- OUTSIDE RECORDS SUMMARY | 2016-07-29 20:50 | XMS REPORT | Continuity of Care Document ---
:1940 Author Organization [facility] ([facility]) Address [address] [place] [address] Phone [phone] Care Team Providers Name Role Phone Provider, No-Primary Care Primary Care Provider Unavailable Source Comments This disclosure is being made pursuant to the Care Everywhere program, applicable federal and state laws, and may not contain all informaitonavailable regarding this patient.[facility] ([facility]) Active Allergies and Adverse Reactions Allergen [...] Date Type Specialty Providers Description 07/07/2016 Telephone [facility] Mariana Chandler LPN 06/24/2016 Telephone [facility] Adrienne Pickard Chief Comp: Miguelina Merrill LPN for Prescription 06/18/2016 Office Visit [place] [facility] Nick Domingo, Dx: 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 (Primary Dx) 06/04/2016 Refill [facility] Nick Domingo, Dx: Chronic [...] 1.753 m (5' 9") 03/30/2013 1:22 PM [facility] Weight 83.371 kg (183 lb 12.8 oz) 06/18/2016 10:44 AM CDT Body Mass Index 27.13 06/18/2016 10:44 AM CDT Oxygen Saturation 93% 02/07/2015 11:49 AM [facility]IP [facility] Plan of Care Date Type Specialty Providers Description 08/13/2016 Appointment [facility] Nick Domingo, Chief Comp: Patient DO Reported Reason For [address] Visit ANNEMARIE ATKINSON [phone] (Fax) Health Maintenance Due Date Last Done Comments Hepatitis B Vaccine (1 of 3 - Primary Series) 1940 Colonoscopy 1990 Prostate Cancer Screening 1990 Zoster Vaccine 2000 Pneumococcal Vaccine (2 of 2 - PCV13) 12/29/2013 12/29/2012 Influenza Vaccine: Seasonal (Season Ended) 2016 Lipid Disorder Screening 03/26/2018 03/26/2013 Results from Last 3 Months Not on file
--- NOTE | 2016-07-29 22:08 | HP ---
<Tiana Lindsey - Last Filed: 07/30/16 02:21> Chief Complaint - Chief Complaint Date of Service: 07/29/16 Time of Service: 22:06 Chief Complaint: 'Fall, weakness'. Source of HPI- Pt; unreliable, Pt's spouse, ER provider report. History of Present Illness: Mr. Russell is a 75-yr-old WM pt who normally sees Dr. Nick Domingo, an Internal Medicine Physician affiliated with [facility]. His PMH involves: A-fib, COPD, CHF, HTN. Pt is an unreliable historian, appears intoxicated and has a meandering conversation that cannot lead to events of sickness or the reason for coming to the hospital. Spouse, Tuhy was at beside and provided the information. Pt apparently was exiting his truck and he fell and 'face planted on the gravel driveway at home.' He states that he lost his balance while turning around to greet his neighbour. The neighbour called the EMS for him. states that he suspects pt had been out drinking alcohol. She states pt drinks on a daily basis for the last 17 yrs they've been . She reports that the only time pt has never drunk any alcohol was during the two days that the pt was admitted at the [facility], which was on 07/26-07/28.The pt had been hospitalized for Pneumonia/Sepsis, but then on 07/28, he chose to leave AMA. He was prescribed Levaquin 750mg x 14 days. states that they filled the prescription but pt did not take the dose on 07/29. During evaluation at the ED,he was found to have Leukocytosis with a WBC of 18,900 & a LT shift. He was hyponatremic with Na level of 128. His Lactic acid was 3.5, however his ETOH level was 110. The imaging studies involving CT of the Head and Cervical Spine did not have any acute findings. The CXR did not have any consolidation or infiltrates. states that he gets SOB easily withing 10 ft of ambulation. There are no reports of fevers or chills. The SOB, she says, has been going on for 1 month. She also states he has a cough, but it's dry and non- productive. He is chronically on 2 L of Oxygen 04/10. He will be admitted under observation status due dehydration & weakness. - Patient's Past Medical History Patient History - Medical: Alcohol Abuse, Arthritis Patient History - Cardiac/Respiratory: Atrial Fibrillation, CHF, COPD, Hypertension, Hyperlipidemia, Home O2 Use Patient History - Cancer: No Hx of Cancer Patient History - Surgical Procedures: No surgical history Patient History - Other: None - Family History Mother Family History - Medical: Family History - Cardiac/Respiratory: Coronary Heart Disease, COPD Father Family History - Medical: Family History - Cardiac/Respiratory: COPD, Myocardial Infarction Family History - Cancer: Lung - Social History Living Situations: home Psych History: No pertinent hx Smoking Status: Former smoker Have you smoked in the past 12 months: No Do you dip or chew tobacco: No Smoking Stop Date: 07/30/07 Alcohol Use: heavy Drug Use: none - Immunizations Immunizations Up to Date: Yes Hx Pneumococcal Vaccination: Yes History of Influenza Vaccine: Yes Review Of Systems (GEN) - Review of Systems Generalized/Overall Review: Present: Weakness. Absent: Chills, Fever EENTM: Absent: Eye Pain, Double Vision, Nose Congestion Respiratory: Present: Cough, Shortness of Breath Cardiac: Absent: Chest Pain, Palpitations, Syncope Abdominal: Absent: Nausea, Vomiting, Abdominal Pain, Constipation, Diarrhea Genitourinary: Absent: Burning, Frequency, Hesitancy Musculoskeletal: Absent: Joint Pain, Back Pain Neurological: Present: Anxiety, Depressed, Tremors Skin: Present: Dryness, Lesions, Bruising Endocrine: Present: Intolerance to Cold Misc: All systems neg except as marked Allergies/Adverse Reactions: Allergies Allergy/AdvReac Type Severity Reaction Status Date / Time penicillin G Allergy Verified 07/26/16 17:56 Home Medications: HOME MEDICATIONS Budesonide/Formoterol Fumarate [Symbicort 160-4.5 Mcg Inhaler] 2 puff IH BID [Last Taken 07/29/16] Digoxin [Lanoxin] 0.125 mg PO DAILY 07/26/16 [Last Taken 07/29/16] Fosinopril Sodium 10 mg PO DAILY 07/26/16 [Last Taken 07/29/16] Simvastatin [Zocor] 20 mg PO HS 07/26/16 [Last Taken 07/28/16] Spironolactone [Aldactone] 25 mg PO BID@0900,1700 07/26/16 [Last Taken 07/29/16] Tiotropium [place] [Spiriva] 1 cap IH DAILY 07/26/16 [Last Taken 07/29/16] predniSONE [Prednisone] 10 mg PO DAILY 07/26/16 [Last Taken 07/29/16] Acetaminophen [Tylenol] 650 mg PO Q4H PRN #0 tablet 07/28/16 [Last Taken Unknown ] Folic Acid 1 mg PO DAILY #30 tablet 07/28/16 [Last Taken 07/29/16] Furosemide [Lasix] 20 mg PO DAILY #30 tablet 07/28/16 [Last Taken 07/29/16] HYDROcodone/ACETAMINOPHEN [[place] 5-325] 1 each PO Q6H PRN #100 tablet 07/28/16 [ Last Taken Unknown] Levofloxacin [Levaquin] 750 mg PO DAILY #14 tablet 07/28/16 [Last Taken Unknown] Multivitamins [Multivitamin Ita] 1 cap PO DAILY #30 capsule 07/28/16 [Last Taken 07/29/16] Olopatadine HCl [Patanol] 1 drop EACHEYE BID #1 btl 07/28/16 [Last Taken ] Oxybutynin Chloride [Ditropan] 5 mg PO HS #30 tablet 07/28/16 [Last Taken ] Thiamine HCl [Vitamin B-1] 100 mg PO DAILY #30 tablet 07/28/16 [Last Taken 07/29] chlordiazePOXIDE HCL [Librium] 10 mg PO HS PRN #30 capsule 07/28/16 [Last Taken 07/28/16] Bacitracin Zinc [Bacitracin] 1 appl TP TID PRN #0 tube 07/30/16 [Last Taken Unknown] Exam - Exam Vital Signs: Vital Signs - Last Taken Temp 37.6 C H 07/29/16 21:50 Pulse 118 H 07/29/16 21:50 Resp 18 07/29/16 21:50 BP 117/66 07/29/16 21:50 Pulse Ox 93 07/29/16 21:50 Constitutional: Present: Alert, No distress, Elderly ENT Exam: Present: normal ENT inspection, hearing grossly normal, dry mucous membranes. Absent: nasal congestion, nasal drainage Eye Exam: bilateral eye: normal inspection, PERRL, other - Abrasion on LT eye. Neck: Present: full range of motion, supple, normal inspection Back Exam: Present: no CVA tenderness Breasts: Present: Exam deferred Respiratory: Present: lungs clear, no accessory muscle use. Absent: wheezing Cardiovascular/Chest: Present: no chest tenderness, no edema, irregularly irregular Abdomen: Present: Normal bowel sounds, nontender /Rectal: Present: Exam deferred Extremity: Present: non-tender, normal inspection Skin Exam: Present: other - Scattered Bruising. Lymphatic: Present: no adenopathy Neurologic: Present: alert, normal mood/affect, oriented x 3 Appearance: Present: disheveled, impaired insight Eye contact: Present: cooperative, good eye contact, increased rate of speech Thoughts: Present: no apparent hallucination Diagnostic Studies: Laboratory Results WBC 18.6 K/mm3 (4.0-10.5) H D 07/29/16 18:59 RBC 3.85 M/mm3 (4.7-6.0) L 07/29/16 18:59 Hgb 11.4 gm/dL (13.5-18.0) L 07/29/16 18:59 Hct 33.4 % (42.0-52.0) L 1817 18:59 MCV 86.8 fl (78-100) 1817 18:59 MCH 29.6 pg (27-31) 1817 18:59 MCHC 34.1 g/dl (32-36) 1817 18:59 RDW 12.3 % (11.5-14.0) 1817 18:59 Plt Count 263 K/mm3 (150-450) 1817 18:59 MPV 9.3 fl (6.0-9.5) 1817 18:59 Neutrophils % (Manual) 91 % (42-75) H 1817 18:59 Lymphocytes % (Manual) 3 % (20-51) L 1817 18:59 Monocytes % (Manual) 2 % (0-9) 1817 18:59 Immature Granulocytes 4 (0-1) H 1817 18:59 Neutrophils # (Manual) 16.9 K/mm3 (1.3-6.0) H 18 18:59 Lymphocytes # (Manual) 0.6 k/mm3 (1.5-3.5) L 07/29/16 18:59 Monocytes # (Manual) 0.4 k/mm3 (0.0-1.0) 07/29/16 18:59 Toxic Granulation 1+ 07/29/16 18:59 Platelet Estimate Normal (NORMAL) 07/29/16 18:59 Hypochromasia 1+ 07/29/16 18:59 pCO2 33.1 mmHg (35.0-48.0) L 07/29/16 20:32 pO2 84.3 mmHg (83.0-108.0) 07/29/16 20:32 HCO3 23.4 mmol/L (21.0-28.0) 07/29/16 20:32 Total CO2 24.4 mmol/L (19.0-24.0) H 07/29/16 20:32 Base Excess 0.2 mmol/L (-2.0-3.0) 07/29/16 20:32 ABG pH 7.47 (7.35-7.45) H 07/29/16 20:32 ABG O2 Sat (Measured) 96.9 % (94.0-98.0) 07/29/16 20:32 Sodium 128 mmol/L (132-142) L 07/29/16 18:59 Plasma Sodium 128 mmol/L (130-142) L 07/29/16 18:59 Potassium 4.3 mmol/L (3.4-4.6) 07/29/16 18:59 Chloride 92 mmol/L (97-106) L 07/29/16 18:59 Carbon Dioxide 25.2 mmol/L (24-32.6) 07/29/16 18:59 Anion Gap 15.1 mmol/L (6.8-13.8) H 07/29/16 18:59 BUN 20 mg/dL (6-23) D 07/29/16 18:59 Creatinine 0.85 mg/dL (0.4-1.4) 07/29/16 18:59 Est GFR (Non-Af Amer) 93 mL/min (60-130) D 07/29/16 18:59 BUN/Creatinine Ratio 23.5 (9.0-21.6) H 07/29/16 18:59 Random Glucose 98 mg/dL (70-110) 07/29/16 18:59 Lactic Acid, Venous 3.5 mmol/L (0.4-1.9) H* 07/29/16 18:59 Calcium 9.0 mg/dL (7.9-10.9) 07/29/16 18:59 Calcium Adj for Albumin 10.2 mg/dL (8.4-10.2) 07/29/16 18:59 Total Bilirubin 0.5 mg/dL (0.0-1.1) 07/29/16 18:59 AST 53 U/L (0-48) H 07/29/16 18:59 ALT 35 U/L (19-67) 07/29/16 18:59 Alkaline Phosphatase 88 U/L (50-170) 07/29/16 18:59 Total Protein 6.1 gm/dL (6.2-8.2) L 07/29/16 18:59 Albumin 2.1 gm/dl (3.4-5.0) L 07/29/16 18:59 Ethyl Alcohol 110.0 mg/dL (0.0-10.0) H 07/29/16 18:59 Assessment/Plan - Assessment/Plan (1) Leukocytosis Assessment: Pt recently hospitalized for LLL Pneumonia07/26-07/28 for Pneumonia. He left AMA but was also given prescription of Levaquin 750mg po daily. His wbc was down to 13,500 from 21,900 on the day he left. On today's admission, it up to 18,600. I do not suspect any new infection, but rather non-compliance with antibiotic regimen. The CXR did not show any new Lung consolidation. Will continue Levaquin 750mg IV. CBC in am. Problem: Acute (2) Lactic acidosis Assessment: Suspect that this is due to Ethanol Intoxication vs Tissue hypoxia from sepsis. He does not appear acutely ill but rather dishevelled. VS are stable except for low grade fever. He has a qSOFA score of 1 which is not a high risk for Sepsis but will continue to monitor, evaluate and initiate treatment as appropriate. Problem: Acute (3) Dehydration Assessment: Evidenced with Na of 128 and weakness, & ETOH consumption. Will hydrate gently with Isotonic IVF. BMP in am. Problem: Acute (4) EtOH dependence Assessment: Monitor for stage 1 minor withdrawal which can occur 6-12 hours after stopping alcohol: Tremors,insomnia, irritability, agitation, restlessness... Treat according to CIWA scores. Problem: Chronic (5) Shoulder pain, bilateral Assessment: Previous x-ray imaging did not show any fracture or dislocation- Continue pain control with hydrocodone. Problem: Acute (6) COPD (chronic obstructive pulmonary disease) Assessment: Stable- On 2 L of oxygen and neb treatments. Problem: Chronic (7) CHF (congestive heart failure) Assessment: Stable- No signs of fluid retention. Continue Lasix. Problem: Chronic (8) A-fib Assessment: Stable- remote telemetry monitoring, on Digoxin Problem: Chronic QualifierTitle: Atrial fibrillation type: chronic Qualified Code(s): I48.2 - Chronic atrial fibrillation <Jamey Camp - Last Filed: 07/30/16 12:58> Immunizations: IMMUNIZATION HX Immunizations Up to Date Yes History of Influenza Vaccine Yes Hx Pneumococcal Vaccination Yes Exam - Exam Vital Signs: Vital Signs - Last Taken Temp 37.1 C 07/30/16 09:00 Pulse 104 H 07/30/16 09:00 Resp 18 07/30/16 09:00 BP 99/46 07/30/16 09:00 Pulse Ox 99 07/30/16 10:43 Diagnostic Studies: Abnormal Lab Results 07/29/16 07/30/16 07/30/16 Range/Units 22:50 05:43 05:43 WBC 14.3 H D (4.0-10.5) K/mm3 RBC 3.81 L (4.7-6.0) M/mm3 Hgb 11.4 L (13.5-18.0) gm/dL Hct 33.3 L (42.0-52.0) % MPV 9.7 H (6.0-9.5) fl Immature Gran % (Auto) 4.50 H (0.001-0.429) % Immature Gran # (Auto) 0.65 H (0.000-0.0310) K/mm3 Neutrophils % 78.6 H (42-75.0) % Lymphocytes % 5.9 L (20-51) % Monocytes % 10.5 H (0.0-9) % Neutrophils # 11.2 H (1.3-6.0) K/mm3 Lymphocytes # 0.9 L (1.5-3.5) k/mm3 Monocytes # 1.5 H (0.0-1.0) k/mm3 Chloride 96 L (97-106) mmol/L BUN/Creatinine Ratio 22.7 H (9.0-21.6) Lactic Acid, Venous 2.8 H* (0.4-1.9) mmol/L Laboratory Results WBC 14.3 K/mm3 (4.0-10.5) H D 07/30/16 05:43 RBC 3.81 M/mm3 (4.7-6.0) L 07/30/16 05:43 Hgb 11.4 gm/dL (13.5-18.0) L 07/30/16 05:43 Hct 33.3 % (42.0-52.0) L 07/30/16 05:43 MCV 87.4 fl (78-100) 07/30/16 05:43 MCH 29.9 pg (27-31) 07/30/16 05:43 MCHC 34.2 g/dl (32-36) 07/30/16 05:43 RDW 12.3 % (11.5-14.0) 07/30/16 05:43 Plt Count 237 K/mm3 (150-450) 07/30/16 05:43 MPV 9.7 fl (6.0-9.5) H 07/30/16 05:43 Immature Gran % (Auto) 4.50 % (0.001-0.429) H 07/30/16 05:43 Immature Gran # (Auto) 0.65 K/mm3 (0.000-0.0310) H 07/30/16 05:43 Neutrophils % 78.6 % (42-75.0) H 07/30/16 05:43 Neutrophils % (Manual) 91 % (42-75) H 07/29/16 18:59 Lymphocytes % 5.9 % (20-51) L 07/30/16 05:43 Lymphocytes % (Manual) 3 % (20-51) L 07/29/16 18:59 Monocytes % 10.5 % (0.0-9) H 07/30/16 05:43 Monocytes % (Manual) 2 % (0-9) 07/29/16 18:59 Eosinophils % 0.2 % (0.0-3.0) 07/30/16 05:43 Basophils % 0.3 % (0.0-1.0) 07/30/16 05:43 Nucleated RBC % 0.0 k/mm3 (0-1) 07/30/16 05:43 Immature Granulocytes 4 (0-1) H 07/29/16 18:59 Neutrophils # 11.2 K/mm3 (1.3-6.0) H 07/30/16 05:43 Neutrophils # (Manual) 16.9 K/mm3 (1.3-6.0) H 07/29/16 18:59 Lymphocytes # 0.9 k/mm3 (1.5-3.5) L 07/30/16 05:43 Lymphocytes # (Manual) 0.6 k/mm3 (1.5-3.5) L 07/29/16 18:59 Monocytes # 1.5 k/mm3 (0.0-1.0) H 07/30/16 05:43 Monocytes # (Manual) 0.4 k/mm3 (0.0-1.0) 07/29/16 18:59 Eosinophils # 0.0 k/mm3 (0.0-0.7) 07/30/16 05:43 Absolute Basophils 0.1 k/mm3 (0.0-0.1) 07/30/16 05:43 Toxic Granulation 1+ 07/29/16 18:59 Platelet Estimate Normal (NORMAL) 07/29/16 18:59 Hypochromasia 1+ 07/29/16 18:59 pCO2 33.1 mmHg (35.0-48.0) L 07/29/16 20:32 pO2 84.3 mmHg (83.0-108.0) 07/29/16 20:32 HCO3 23.4 mmol/L (21.0-28.0) 07/29/16 20:32 Total CO2 24.4 mmol/L (19.0-24.0) H 07/29/16 20:32 Base Excess 0.2 mmol/L (-2.0-3.0) 07/29/16 20:32 ABG pH 7.47 (7.35-7.45) H 07/29/16 20:32 ABG O2 Sat (Measured) 96.9 % (94.0-98.0) 07/29/16 20:32 Sodium 133 mmol/L (132-142) 07/30/16 05:43 Plasma Sodium 133 mmol/L (130-142) 07/30/16 05:43 Potassium 4.3 mmol/L (3.4-4.6) 07/30/16 05:43 Chloride 96 mmol/L (97-106) L 07/30/16 05:43 Carbon Dioxide 29.1 mmol/L (24-32.6) 07/30/16 05:43 Anion Gap 12.2 mmol/L (6.8-13.8) 07/30/16 05:43 BUN 17 mg/dL (6-23) 07/30/16 05:43 Creatinine 0.75 mg/dL (0.4-1.4) 07/30/16 05:43 Est GFR (Non-Af Amer) 108 mL/min (60-130) 07/30/16 05:43 BUN/Creatinine Ratio 22.7 (9.0-21.6) H 07/30/16 05:43 Random Glucose 95 mg/dL (70-110) 07/30/16 05:43 Lactic Acid, Venous 2.8 mmol/L (0.4-1.9) H* 07/29/16 22:50 Calcium 8.9 mg/dL (7.9-10.9) 07/30/16 05:43 Calcium Adj for Albumin 10.2 mg/dL (8.4-10.2) 07/29/16 18:59 Total Bilirubin 0.5 mg/dL (0.0-1.1) 07/29/16 18:59 AST 53 U/L (0-48) H 07/29/16 18:59 ALT 35 U/L (19-67) 07/29/16 18:59 Alkaline Phosphatase 88 U/L (50-170) 07/29/16 18:59 Total Protein 6.1 gm/dL (6.2-8.2) L 07/29/16 18:59 Albumin 2.1 gm/dl (3.4-5.0) L 07/29/16 18:59 Urine Color Yellow 07/29/16 19:01 Urine Appearance Clear 07/29/16 19:01 Urine pH 5.5 pH (5.0-7.0) 07/29/16 19:01 Ur Specific [place] 1.015 SP.GR. (1.005-1.030) 07/29/16 19:01 Urine Protein Negative mg/dL (NEGATIVE) 07/29/16 19:01 Urine Glucose (UA) Negative mg/dL (NEGATIVE) 07/29/16 19:01 Urine Ketones Negative mg/dL (NEGATIVE) 07/29/16 19:01 Urine Blood Negative /ul (NEGATIVE) 07/29/16 19:01 Urine Nitrate Negative (NEGATIVE) 07/29/16 19:01 Urine Bilirubin Negative mg/dl (NEGATIVE) 07/29/16 19:01 Urine Urobilinogen Normal EU/dl (NORMAL) 07/29/16 19:01 Ur Leukocyte Esterase Negative /ul (NEGATIVE) 07/29/16 19:01 Urine RBC None seen /hpf (0-5) 07/29/16 19:01 Urine WBC None seen /hpf (0-5) 07/29/16 19:01 Ur Epithelial Cells 0-5 /hpf (0-5) 07/29/16 19:01 Urine Bacteria Trace (NONE) 07/29/16 19:01 Urine Culture Comments No culture indicated 07/29/16 19:01 Ethyl Alcohol 110.0 mg/dL (0.0-10.0) H 07/29/16 18:59 Assessment/Plan - Narrative Narrative: Today, the patient related to me he simply lost his footing getting out of his truck. He had purchased the script for outpatient Levaquin, but hadn't taken any yet. He hit his head when he fell. His PET scan is scheduled for this coming and his followup with his doctor this coming Tuesday. He slept well last night and feels good this morning. His blood alcohol level was 110 at the time of admission. - Assessment/Plan (1) Fall Problem: Acute (2) Hyponatremia Problem: Resolved (3) Nocturia Problem: Chronic (4) Generalized weakness Problem: Acute (5) Lactic acidosis Problem: Resolved (6) Leukocytosis Problem: Acute Qualifiers: Leukocytosis type: unspecified Qualified Code(s): D72.829 - Elevated white blood cell count, unspecified (7) Shoulder pain, bilateral Problem: Chronic Qualifiers: Chronicity: chronic Qualified Code(s): M25.512 - Pain in left shoulder; M25.511 - Pain in right shoulder; G89.29 - Other chronic pain (8) CHF (congestive heart failure) Problem: Chronic (9) COPD (chronic obstructive pulmonary disease) Problem: Chronic Qualifiers: Chronic bronchitis type: unspecified (10) EtOH dependence Problem: Chronic (11) Abnormal chest CT Problem: Acute (12) FTT (failure to thrive) in adult Problem: Chronic (13) Pneumonia Problem: Acute Qualifiers: Pneumonia type: due to unspecified organism Laterality: bilateral Lung location: lower lobe of lung Qualified Code(s): J18.9 - Pneumonia, unspecified organism (14) A-fib Problem: Chronic Qualifiers: Atrial fibrillation type: chronic Qualified Code(s): I48.2 - Chronic atrial fibrillation (15) Arthritis Problem: Chronic (16) HTN (hypertension) Problem: Chronic Qualifiers: Hypertension type: essential hypertension Qualified Code(s): I10 - Essential (primary) hypertension
[2016-07-29] MEDS ORDERED: chlordiazePOXIDE HCL 10 MG CAPSULE PO PRN (22:15)
[2016-07-29] MEDS ORDERED: ACETAMINOPHEN 325 MG TABLET PO PRN (22:15)
[2016-07-29] MEDS: HYDROcodone/ACETAMINOPHEN 1 EACH TABLET PO PRN (22:42)
[2016-07-29 22:47] LABS: Urine Bilirubin Negative (NEGATIVE); Urine Blood Negative /ul (NEGATIVE); Urine Ketone Negative (NEGATIVE); Urine Nitrite Negative (NEGATIVE); Urine Protein Negative (NEGATIVE); Urine Specific Gravity 1.015 SP.GR. (1.005-1.030); Urine Urobilinogen Normal (NORMAL); Urine pH 5.5 pH (5.0-7.0)
[2016-07-29 23:02] LABS: Urine Appearance Clear; Urine Color Yellow
[2016-07-29 23:03] LABS: Urine Bacteria TRACE; Urine RBC None Seen /hpf (0-5); Urine WBC None Seen /hpf (0-5)
[2016-07-30] MEDS ORDERED: NORMAL SALINE 1,000 ML IV PRN (00:18)
[2016-07-30] MEDS ORDERED: LORazepam 2 MG/ML DISP.SYRIN IV PRN ×3 (01:05)
[2016-07-30] MEDS: HYDROcodone/ACETAMINOPHEN 1 EACH TABLET PO PRN ×2 (05:20→11:22)
[2016-07-30] MEDS ORDERED: BACITRACIN ZINC 30 APPL TUBE TP PRN (06:08)
[2016-07-30 06:22] LABS: Hematocrit 33.3 % (42.0-52.0); Hemoglobin 11.4 gm/dL (13.5-18.0); Mean Cell Volume 87.4 fl (78-100); Mean Corpuscular Hemoglobin 29.9 pg (27-31); Mean Corpuscular Hgb Conc 34.2 g/dl (32-36); Mean Platelet Volume 9.7 fl (6.0-9.5); Neutrophil # 11.2 K/mm3 (1.3-6.0); Neutrophil % 78.6 % (42-75.0); Platelet Count 237 K/mm3 (150-450); Red Blood Count 3.81 M/mm3 (4.7-6.0); Red Cell Distribution Width 12.3 % (11.5-14.0); White Blood Count 14.3 K/mm3 (4.0-10.5)
[2016-07-30 06:26] LABS: Anion Gap 12.2 mmol/L (6.8-13.8); BUN/Creatinine Ratio 22.7 (9.0-21.6); Calcium * 8.9 mg/dL (7.9-10.9); Carbon Dioxide 29.1 mmol/L (24-32.6); Estimated Creat Clear 85.1; Potassium 4.3 mmol/L (3.4-4.6)
[2016-07-30] MEDS ORDERED: FOLIC ACID 1 MG TABLET PO SCH (09:00)
[2016-07-30] MEDS ORDERED: predniSONE 10 MG TABLET PO SCH (09:00)
[2016-07-30] MEDS ORDERED: FUROSEMIDE 20 MG TABLET PO SCH (09:00)
[2016-07-30] MEDS ORDERED: OLOPATADINE HCL 50 DROP BTL EACHEYE SCH (09:00)
[2016-07-30] MEDS ORDERED: MULTIVITAMINS 1 CAP CAPSULE PO SCH (09:00)
[2016-07-30] MEDS ORDERED: THIAMINE HCL 100 MG TABLET PO SCH (09:00)
[2016-07-30] MEDS ORDERED: LISINOPRIL 10 MG TABLET PO SCH (09:00)
[2016-07-30] MEDS ORDERED: TIOTROPIUM BROMIDE 5 CAP INHALER IH SCH (09:00)
[2016-07-30] MEDS ORDERED: SPIRONOLACTONE 25 MG TABLET PO SCH (09:00)
[2016-07-30] MEDS ORDERED: DIGOXIN 0.125 MG TABLET PO SCH (09:00)
[2016-07-30] MEDS ORDERED: FLUTICASONE/SALMETEROL 14 PUFF DISK.W.DEV IH SCH (09:00)
[2016-07-30 09:29] VITALS: BP 99/46
--- NOTE | 2016-07-30 10:43 | DS ---
(1) Fall Problem: Acute (2) Hyponatremia Problem: Resolved (3) Nocturia Problem: Chronic (4) Generalized weakness Problem: Acute (5) Lactic acidosis Problem: Resolved (6) Leukocytosis Problem: Acute Qualifiers: Leukocytosis type: unspecified Qualified Code(s): D72.829 - Elevated white blood cell count, unspecified (7) Shoulder pain, bilateral Problem: Chronic Qualifiers: Chronicity: chronic Qualified Code(s): M25.512 - Pain in left shoulder; M25.511 - Pain in right shoulder; G89.29 - Other chronic pain (8) CHF (congestive heart failure) Problem: Chronic (9) COPD (chronic obstructive pulmonary disease) Problem: Chronic Qualifiers: Chronic bronchitis type: unspecified (10) EtOH dependence Problem: Chronic (11) Abnormal chest CT Problem: Acute (12) FTT (failure to thrive) in adult Problem: Chronic (13) Pneumonia Problem: Acute Qualifiers: Pneumonia type: due to unspecified organism Laterality: bilateral Lung location: lower lobe of lung Qualified Code(s): J18.9 - Pneumonia, unspecified organism (14) A-fib Problem: Chronic Qualifiers: Atrial fibrillation type: chronic Qualified Code(s): I48.2 - Chronic atrial fibrillation (15) Arthritis Problem: Chronic (16) HTN (hypertension) Problem: Chronic Qualifiers: Hypertension type: essential hypertension Qualified Code(s): I10 - Essential (primary) hypertension Description of Stay: Prompt improvement with Levaquin, electrolytes and fluids. Slept well last night. Refused once again to stay in hospital beyond today. Agrees to outpatient followup, with PET scan scheduled for 08/05/16 and appt with his doctor scheduled 08/06/16. Did frankly discuss with him again the possiblility of lung cancer and the importance of followup. TB studies are still pending. He says today he simply lost his footing on his truck, but his blood alcohol level was 110 at time of admission this time. He had purchased his levaquin pills already for outpatient use, but hadn't started taking them yet. His hyponatremia and lactic acidosis have resolved by today. I don't believe he was septic on this occasion. He has moderate bruising around his left eye. He was strongly advised to not drink any alcohol whatsoever, at least until he sees his own doctor in a week. Procedures Performed: none Discharge Disposition: Home self care Disposition: Home self-care Condition: Fair Discharge Activity: Activity as tolerated Referrals: Nick Domingo DO [Primary Care Provider] - Problem Oriented Discharge Instructions to Patient/Family: Alcohol Use Disorder , Pulmonary Nodule, Community-Acquired Pneumonia, Adult, [id number] Additional Patient Instructions (free text): PET scan 08/05/16 Followup with your doctor 08/06/16 Don't drink any alcohol of any kind of any amount at any time for any reason. Complete Home Medications List: Complete Home Medication List: Budesonide/Formoterol Fumarate [Symbicort 160-4.5 Mcg Inhaler] 2 puff IH BID Digoxin [Lanoxin] 0.125 mg PO DAILY 07/26/16 Fosinopril Sodium 10 mg PO DAILY 07/26/16 Simvastatin [Zocor] 20 mg PO HS 07/26/16 Spironolactone [Aldactone] 25 mg PO BID@0900,1700 07/26/16 Tiotropium [place] [Spiriva] 1 cap IH DAILY 07/26/16 predniSONE [Prednisone] 10 mg PO DAILY 07/26/16 Acetaminophen [Tylenol] 650 mg PO Q4H PRN #0 tablet 07/28/16 Folic Acid 1 mg PO DAILY #30 tablet 07/28/16 Furosemide [Lasix] 20 mg PO DAILY #30 tablet 07/28/16 HYDROcodone/ACETAMINOPHEN [[place] 5-325] 1 each PO Q6H PRN #100 tablet 07/28/16 Levofloxacin [Levaquin] 750 mg PO DAILY #14 tablet 07/28/16 Multivitamins [Multivitamin Ita] 1 cap PO DAILY #30 capsule 07/28/16 Olopatadine HCl [Patanol] 1 drop EACHEYE BID #1 btl 07/28/16 Oxybutynin Chloride [Ditropan] 5 mg PO HS #30 tablet 07/28/16 Thiamine HCl [Vitamin B-1] 100 mg PO DAILY #30 tablet 07/28/16 chlordiazePOXIDE HCL [Librium] 10 mg PO HS PRN #30 capsule 07/28/16 Bacitracin Zinc [Bacitracin] 1 appl TP TID PRN #0 tube 07/30/16
[2016-07-30] MEDS ORDERED: OXYBUTYNIN CHLORIDE 5 MG TABLET PO SCH (21:00)
[2016-07-30] MEDS ORDERED: SIMVASTATIN 20 MG TABLET PO SCH (21:00)
== END 2016-07-30 11:45 | disposition home or self-care (01) ==
LOC: ER 18:31 → MS 20:44
PROVIDERS: ADMIT Nurse Practitioner; ATTEND Allergy & Immunology
DX: E86.0 Dehydration (principal); E87.1 Hypo-osmolality and hyponatremia; E87.2 Acidosis; R41.0 Disorientation, unspecified; D72.829 Elevated white blood cell count, unspecified; S00.83XA Contusion of other part of head, initial encounter; S01.112A Laceration without foreign body of left eyelid and periocular area, initial encounter; W01.0XXA Fall on same level from slipping, tripping and stumbling without subsequent striking against object, initial encounter; Y92.488 Other paved roadways as the place of occurrence of the external cause; J18.9 Pneumonia, unspecified organism; F10.229 Alcohol dependence with intoxication, unspecified; Y90.5 Blood alcohol level of 100-119 mg/100 ml; I48.2 Chronic atrial fibrillation; J44.9 Chronic obstructive pulmonary disease, unspecified; Z87.891 Personal history of nicotine dependence; I50.9 Heart failure, unspecified; M25.512 Pain in left shoulder; M25.511 Pain in right shoulder; R35.1 Nocturia; I10 Essential (primary) hypertension; M19.90 Unspecified osteoarthritis, unspecified site
CPT/HCPCS: 36415; 36600; 70450; 71020; 72125; 80048; 80053; 81001; 82803; 83605; 85025; 87040; 96361; 96365; 99284; G0378; G0481

== ENCOUNTER 2016-08-03 15:37 | Inpatient (IN) | payer MEDICARE, OTHER ==
--- OUTSIDE RECORDS SUMMARY | 2016-08-03 15:42 | XMS REPORT | Continuity of Care Document ---
:1940 Author Organization [facility] ([facility]) Address [address] [place] [address] Phone [phone] Care Team Providers Name Role Phone Provider, No-Primary Care Primary Care Provider Unavailable Source Comments This disclosure is being made pursuant to the Care Everywhere program, applicable federal and state laws, and may not contain all informaitonavailable regarding this patient.[facility] ([facility]) Active Allergies and Adverse Reactions Allergen [...] Date Type Specialty Providers Description 07/07/2016 Telephone [facility] Mariana Chandler LPN 06/24/2016 Telephone [facility] Adrienne Pickard Chief Comp: Miguelina Merrill LPN for Prescription 06/18/2016 Office Visit [facility] Nick Domingo, Dx: 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 (Primary Dx) 06/04/2016 Refill [facility] Nick Domingo, Dx: Chronic systolic [...] 1.753 m (5' 9") 03/30/2013 1:22 PM BEHAVIORAL THERAPY COORDINATOR Weight 83.371 kg (183 lb 12.8 oz) 06/18/2016 10:44 AM CDT Body Mass Index 27.13 06/18/2016 10:44 AM CDT Oxygen Saturation 93% 02/07/2015 11:49 AM BEHAVIORAL THERAPY COORDINATOR Plan of Care Date Type Specialty Providers Description 08/13/2016 Appointment [facility] Nick Domingo, Chief Comp: Patient DO Reported Reason For [address] Visit [place] [id number] [phone] (Fax) Health Maintenance Due Date Last Done Comments Hepatitis B Vaccine (1 of 3 - Primary Series) 1940 Colonoscopy 1990 Prostate Cancer Screening 1990 Zoster Vaccine 2000 Pneumococcal Vaccine (2 of 2 - PCV13) 12/29/2013 12/29/2012 Influenza Vaccine: Seasonal (Season Ended) 2016 Lipid Disorder Screening 03/26/2018 03/26/2013 Results from Last 3 Months Not on file
[2016-08-03] MEDS ORDERED: NORMAL SALINE 1,000 ML IV ONE ×2 (15:50→17:15)
[2016-08-03] MEDS ORDERED: ACETAMINOPHEN 325 MG TABLET PO PRN (16:01)
[2016-08-03 16:25] LABS: Hematocrit 37.9 % (42.0-52.0); Hemoglobin 12.8 gm/dL (13.5-18.0); Mean Cell Volume 86.3 fl (78-100); Mean Corpuscular Hemoglobin 29.2 pg (27-31); Mean Corpuscular Hgb Conc 33.8 g/dl (32-36); Mean Platelet Volume 10.5 fl (6.0-9.5); Platelet Count 276 K/mm3 (150-450); Red Blood Count 4.39 M/mm3 (4.7-6.0); Red Cell Distribution Width 12.7 % (11.5-14.0); White Blood Count 31.9 K/mm3 (4.0-10.5)
[2016-08-03 16:27] LABS: Total Cells Counted 100
[2016-08-03 16:52] LABS: ALT 41 U/L (19-67); AST 150 U/L (0-48); Albumin * 1.9 gm/dl (3.4-5.0); Alkaline Phosphatase * 164 U/L (50-170); Anion Gap 17.8 mmol/L (6.8-13.8); BUN/Creatinine Ratio 23.6 (9.0-21.6); Bilirubin, Total 1.3 mg/dL (0.0-1.1); Blood Urea Nitrogen 38 mg/dL (6-23); Ca. Corrected For Albumin 11.4 mg/dL (8.4-10.2); Carbon Dioxide 27.2 mmol/L (24-32.6); Chloride 92 mmol/L (97-106); Digoxin 1.4 ng/mL (0.5-2.0); Glucose * 112 mg/dL (70-110); Sodium 131 mmol/L (132-142); Total Protein 6.2 gm/dL (6.2-8.2)
[2016-08-03 16:54] LABS: Troponin I Less than 0.017 ng/ml (0.00-0.10)
[2016-08-03] MEDS ORDERED: ENOXAPARIN SODIUM 30 MG/0.3 ML SYRG SC SCH (17:00)
[2016-08-03] MEDS ORDERED: DEXTROSE 5%-NORMAL SALINE 1,000 ML IV PRN (17:00)
[2016-08-03 17:12] LABS: Anion Gap 16.9 mmol/L (6.8-13.8); Carbon Dioxide 27.1 mmol/L (24-32.6)
[2016-08-03 17:26] LABS: Atypical (Reactive) Lymph 1 % (0-2); Band 4 % (0-2.0); Immature Granulocyte 2 (0-1); Lymphocyte 3 % (20-51); Monocyte 2 % (0-9); Neutrophil 88 % (42-75); Neutrophil # 28.1 K/mm3 (1.3-6.0)
[2016-08-03 17:30] LABS: Polychromasia 1+; Toxic Granulation 1+
[2016-08-03 17:31] LABS: Dohle Bodies 3+; Platelet Estimate Normal (NORMAL); RBC Morphology Normal (NORMAL)
[2016-08-03] MEDS: HYDROcodone/ACETAMINOPHEN 1 EACH TABLET PO PRN (17:39)
[2016-08-03] MEDS: ENOXAPARIN SODIUM 40 MG/0.4 ML SYRG SC SCH (17:39)
[2016-08-03] MEDS ORDERED: SODIUM POLYSTYRENE SULFON/SORB 15 G/60 ML BTL PO ONE (18:41)
[2016-08-03] MEDS: NORMAL SALINE 1,000 ML IV SCH ×2 (18:47→19:35)
--- NOTE | 2016-08-03 19:02 | HP ---
Chief Complaint - Chief Complaint Date of Service: 08/03/16 Time of Service: 14:30 Chief Complaint: Sick History of Present Illness: The patient is a 75 year old /White male with a hx of etoh abuse, chf, copd, pneumonia and chest imaging studies probably representing lung cancer. He was recently in [facility] twice for pneumonia, signing out against medical advice each time. He has a PET scan scheduled for tomorrow. He presents to the office today for new pt, hospital follow up (normally seeing Dr. Domingo) and reports ('s, sons' report) that his pain is not controlled on current pain medicine and that he has not had a BM for 8 days. He has not really been eating or drinking either. The patient denies dyspnea, syncope, palpitations, or edema. There is an outside history of CHF. He has sustained a recent fall, injuring and brusing the left side of his face. Medications are listed in the medication list. The patient is accompanied by his and two sons for the visit today. The patient lives with his spouse. The patient needs assistance with bathing, dressing, getting up to the bathroom, walking, transferring from bed to chair, getting out of bed, shopping, meal preparation, eating, and going to appointments and assistance is provided a spouse. The patient is unable to ambulate and is wheelchair bound The patient has undergone recent lab studies that have been reviewed. The results are detailed in the reports. The patient has had the following health maintenance exams: never had colonscopy. Date of discharge from his most recent hospital stay: 07/30/2016 (although he had one two days prior to that) . Date of follow up call after discharge: 2016. Medication reconcilliation done today: Yes - Patient's Past Medical History Patient History - Medical: Alcohol Abuse, Arthritis Patient History - Cardiac/Respiratory: Atrial Fibrillation, CHF, COPD, Hypertension, Hyperlipidemia, Home O2 Use Patient History - Cancer: No Hx of Cancer Patient History - Surgical Procedures: No surgical history Patient History - Other: None - Family History Mother Family History - Medical: Family History - Cardiac/Respiratory: Coronary Heart Disease, COPD Father Family History - Medical: Family History - Cardiac/Respiratory: COPD, Myocardial Infarction Family History - Cancer: Lung - Social History Living Situations: spouse Abuse History: No History of abuse Psych History: No pertinent hx Alcohol Use: heavy Drug Use: none - Immunizations Immunizations Up to Date: Yes Hx Pneumococcal Vaccination: Yes History of Influenza Vaccine: Yes Review Of Systems (GEN) - Review of Systems Generalized/Overall Review: Present: Weakness, Malaise, Weight loss EENTM: Present: No Symptoms Reported Respiratory: Present: Cough, Shortness of Breath Cardiac: Present: Chest Pain Abdominal: Present: Constipation Genitourinary: Present: No Symptoms Reported Musculoskeletal: Present: Joint Pain, Back Pain Neurological: Present: Weakness Skin: Present: Bruising Endocrine: Present: Intolerance to Cold, Intolerance to Heat Misc: All systems neg except as marked Immunizations: IMMUNIZATION HX Immunizations Up to Date Yes History of Influenza Vaccine Yes Hx Pneumococcal Vaccination Yes Allergies/Adverse Reactions: Allergies Allergy/AdvReac Type Severity Reaction Status Date / Time penicillin G Allergy Verified 08/03/16 15:48 Home Medications: HOME MEDICATIONS Budesonide/Formoterol Fumarate [Symbicort 160-4.5 Mcg Inhaler] 2 puff IH BID [Last Taken 07/29/16] Digoxin [Lanoxin] 0.125 mg PO DAILY 07/26/16 [Last Taken 07/29/16] Fosinopril Sodium 10 mg PO DAILY 07/26/16 [Last Taken 07/29/16] Simvastatin [Zocor] 20 mg PO HS 07/26/16 [Last Taken 07/28/16] Spironolactone [Aldactone] 25 mg PO BID@0900,1700 07/26/16 [Last Taken 07/29/16] Tiotropium [place] [Spiriva] 1 cap IH DAILY 07/26/16 [Last Taken 07/29/16] predniSONE [Prednisone] 10 mg PO DAILY 07/26/16 [Last Taken 07/29/16] Acetaminophen [Tylenol] 650 mg PO Q4H PRN #0 tablet 07/28/16 [Last Taken Unknown ] Folic Acid 1 mg PO DAILY #30 tablet 07/28/16 [Last Taken 07/29/16] Furosemide [Lasix] 20 mg PO DAILY #30 tablet 07/28/16 [Last Taken 07/29/16] HYDROcodone/ACETAMINOPHEN [[place] 5-325] 1 each PO Q6H PRN #100 tablet 07/28/16 [ Last Taken Unknown] Levofloxacin [Levaquin] 750 mg PO DAILY #14 tablet 07/28/16 [Last Taken Unknown] Multivitamins [Multivitamin Ita] 1 cap PO DAILY #30 capsule 07/28/16 [Last Taken 07/29/16] Olopatadine HCl [Patanol] 1 drop EACHEYE BID #1 btl 07/28/16 [Last Taken ] Oxybutynin Chloride [Ditropan] 5 mg PO HS #30 tablet 07/28/16 [Last Taken ] Thiamine HCl [Vitamin B-1] 100 mg PO DAILY #30 tablet 07/28/16 [Last Taken 07/29] chlordiazePOXIDE HCL [Librium] 10 mg PO HS PRN #30 capsule 07/28/16 [Last Taken 07/28/16] Bacitracin Zinc [Bacitracin] 1 appl TP TID PRN #0 tube 07/30/16 [Last Taken Unknown] Exam - Exam Vital Signs: Vital Signs - Last Taken 08/03/2016 02:29 PM BP - 80/30 Sitting P - 122 R - 28 O2 SAT RA - 90 % He present to the office slumped forward in a wheel chair. He was unable to stand, even with assistance. He mumbled and was hard to understand. Constitutional: Present: Lethargic, Elderly, Thin and frail, Looks Older than stated age ENT Exam: Present: hard of hearing, dry mucous membranes Eye Exam: bilateral eye: normal inspection, PERRL, EOMI Neck: Present: trachea midline Back Exam: Present: vertebral tenderness Respiratory: Present: decreased breath sounds Cardiovascular/Chest: Present: regular rate, rhythm Abdomen: Present: Normal bowel sounds, soft, nondistended, no rebound tenderness , no hepatospenomegaly, no masses, tender Extremity: Absent: pedal edema Skin Exam: Present: no cyanosis, cool/dry Neurologic: Present: motor weakness, depressed affect Appearance: Present: disheveled, impaired insight, impaired recent memory, impaired remote memory Eye contact: Present: decreased rate of speech Thoughts: Present: incoherent Diagnostic Studies: Abnormal Lab Results 08/03/16 08/03/16 08/03/16 Range/Units 16:15 16:15 16:15 WBC 31.9 H (4.0-10.5) K/mm3 RBC 4.39 L (4.7-6.0) M/mm3 Hgb 12.8 L (13.5-18.0) gm/dL Hct 37.9 L (42.0-52.0) % MPV 10.5 H (6.0-9.5) fl Neutrophils % (Manual) 88 H (42-75) % Band Neuts % (Manual) 4 H (0-2.0) % Lymphocytes % (Manual) 3 L (20-51) % Immature Granulocytes 2 H (0-1) Neutrophils # (Manual) 28.1 H (1.3-6.0) K/mm3 Lymphocytes # (Manual) 1.0 L (1.5-3.5) k/mm3 Sodium 131 L (132-142) mmol/L Potassium 6.0 H D (3.4-4.6) mmol/L Chloride 92 L (97-106) mmol/L Anion Gap 17.8 H (6.8-13.8) mmol/L BUN 38 H D (6-23) mg/dL Creatinine 1.61 H D (0.4-1.4) mg/dL Est GFR (Non-Af Amer) 45 L D (60-130) mL/min BUN/Creatinine Ratio 23.6 H (9.0-21.6) Random Glucose 112 H (70-110) mg/dL Lactic Acid, Venous 3.7 H* (0.4-1.9) mmol/L Calcium Adj for Albumin 11.4 H (8.4-10.2) mg/dL Total Bilirubin 1.3 H (0.0-1.1) mg/dL AST 150 H (0-48) U/L Albumin 1.9 L (3.4-5.0) gm/dl Procalcitonin (0.05-0.50) ng/mL 08/03/16 08/03/16 Range/Units 16:15 16:15 WBC (4.0-10.5) K/mm3 RBC (4.7-6.0) M/mm3 Hgb (13.5-18.0) gm/dL Hct (42.0-52.0) % MPV (6.0-9.5) fl Neutrophils % (Manual) (42-75) % Band Neuts % (Manual) (0-2.0) % Lymphocytes % (Manual) (20-51) % Immature Granulocytes (0-1) Neutrophils # (Manual) (1.3-6.0) K/mm3 Lymphocytes # (Manual) (1.5-3.5) k/mm3 Sodium 130 L (132-142) mmol/L Potassium 6.0 H (3.4-4.6) mmol/L Chloride 92 L (97-106) mmol/L Anion Gap 16.9 H (6.8-13.8) mmol/L BUN (6-23) mg/dL Creatinine (0.4-1.4) mg/dL Est GFR (Non-Af Amer) (60-130) mL/min BUN/Creatinine Ratio (9.0-21.6) Random Glucose (70-110) mg/dL Lactic Acid, Venous (0.4-1.9) mmol/L Calcium Adj for Albumin (8.4-10.2) mg/dL Total Bilirubin (0.0-1.1) mg/dL AST (0-48) U/L Albumin (3.4-5.0) gm/dl Procalcitonin 5.58 H (0.05-0.50) ng/mL Laboratory Results WBC 31.9 K/mm3 (4.0-10.5) H 08/03/16 16:15 RBC 4.39 M/mm3 (4.7-6.0) L 08/03/16 16:15 Hgb 12.8 gm/dL (13.5-18.0) L 08/03/16 16:15 Hct 37.9 % (42.0-52.0) L 08/03/16 16:15 MCV 86.3 fl (78-100) 08/03/16 16:15 MCH 29.2 pg (27-31) 08/03/16 16:15 MCHC 33.8 g/dl (32-36) 08/03/16 16:15 RDW 12.7 % (11.5-14.0) 08/03/16 16:15 Plt Count 276 K/mm3 (150-450) 08/03/16 16:15 MPV 10.5 fl (6.0-9.5) H 08/03/16 16:15 Neutrophils % (Manual) 88 % (42-75) H 08/03/16 16:15 Band Neuts % (Manual) 4 % (0-2.0) H 08/03/16 16:15 Lymphocytes % (Manual) 3 % (20-51) L 08/03/16 16:15 Monocytes % (Manual) 2 % (0-9) 08/03/16 16:15 Immature Granulocytes 2 (0-1) H 08/03/16 16:15 Neutrophils # (Manual) 28.1 K/mm3 (1.3-6.0) H 08/03/16 16:15 Lymphocytes # (Manual) 1.0 k/mm3 (1.5-3.5) L 08/03/16 16:15 Monocytes # (Manual) 0.6 k/mm3 (0.0-1.0) 08/03/16 16:15 Atypic/Reactive Lymphs 1 % (0-2) 08/03/16 16:15 Toxic Granulation 1+ 08/03/16 16:15 Toxic Vacuolation 1+ 08/03/16 16:15 Dohle Bodies 3+ 08/03/16 16:15 Platelet Estimate Normal (NORMAL) 08/03/16 16:15 RBC Morphology Normal (NORMAL) 08/03/16 16:15 Polychromasia 1+ 08/03/16 16:15 Elliptocytes Trace 08/03/16 16:15 Sodium 130 mmol/L (132-142) L 08/03/16 16:15 Plasma Sodium 131 mmol/L (130-142) 08/03/16 16:15 Potassium 6.0 mmol/L (3.4-4.6) H 08/03/16 16:15 Chloride 92 mmol/L (97-106) L 08/03/16 16:15 Carbon Dioxide 27.1 mmol/L (24-32.6) 08/03/16 16:15 Anion Gap 16.9 mmol/L (6.8-13.8) H 08/03/16 16:15 BUN 38 mg/dL (6-23) H D 08/03/16 16:15 Creatinine 1.61 mg/dL (0.4-1.4) H D 08/03/16 16:15 Est GFR (Non-Af Amer) 45 mL/min (60-130) L D 08/03/16 16:15 BUN/Creatinine Ratio 23.6 (9.0-21.6) H 08/03/16 16:15 Random Glucose 112 mg/dL (70-110) H 08/03/16 16:15 Lactic Acid, Venous 3.7 mmol/L (0.4-1.9) H* 08/03/16 16:15 Calcium 10.0 mg/dL (7.9-10.9) 08/03/16 16:15 Calcium Adj for Albumin 11.4 mg/dL (8.4-10.2) H 08/03/16 16:15 Total Bilirubin 1.3 mg/dL (0.0-1.1) H 08/03/16 16:15 AST 150 U/L (0-48) H 08/03/16 16:15 ALT 41 U/L (19-67) 08/03/16 16:15 Alkaline Phosphatase 164 U/L (50-170) 08/03/16 16:15 Troponin I Less than 0.017 ng/ml (0.00-0.10) 08/03/16 16:15 Total Protein 6.2 gm/dL (6.2-8.2) 08/03/16 16:15 Albumin 1.9 gm/dl (3.4-5.0) L 08/03/16 16:15 Procalcitonin 5.58 ng/mL (0.05-0.50) H 08/03/16 16:15 Digoxin 1.4 ng/mL (0.5-2.0) D 08/03/16 16:15 Assessment/Plan - Narrative Narrative: Labs, xrays, cultures, antibiotics. estimate stay one week. Prognosis poor. - Assessment/Plan (1) Failure of outpatient treatment Problem: Acute (2) Constipation Problem: Acute (3) Abnormal chest CT Problem: Acute (4) Dehydration Problem: Acute (5) Generalized weakness Problem: Acute (6) Pneumonia Problem: Acute Qualifiers: (7) CHF (congestive heart failure) Problem: Chronic Qualifiers: (8) COPD (chronic obstructive pulmonary disease) Problem: Chronic Qualifiers: (9) EtOH dependence Problem: Chronic (10) FTT (failure to thrive) in adult Problem: Chronic
[2016-08-03] MEDS: CEFEPIME HCL 1 GM in DEXTROSE 5 % IN WATER 100 ML IV SCH ×2 (19:16)
[2016-08-03] MEDS: BISACODYL 10 MG SUPP.RECT RC SCH ×2 (19:16→21:37)
[2016-08-03] MEDS: DEXTROSE 5%-NORMAL SALINE 1,000 ML IV PRN (19:17)
[2016-08-03 19:58] LABS: Urine Bilirubin Negative (NEGATIVE); Urine Blood Negative /ul (NEGATIVE); Urine Ketone Negative (NEGATIVE); Urine Nitrite Negative (NEGATIVE); Urine Protein Negative (NEGATIVE); Urine Urobilinogen Normal (NORMAL); Urine pH 5.5 pH (5.0-7.0)
[2016-08-03 20:05] LABS: Urine Appearance Clear; Urine Bacteria 1+; Urine Coarse Granular Cast TRACE /LPF; Urine Color Dark Yellow; Urine RBC None Seen /hpf (0-5); Urine WBC 0-5 /hpf (0-5)
[2016-08-03] MEDS: FLUTICASONE/SALMETEROL 14 PUFF DISK.W.DEV IH SCH (21:35)
[2016-08-03] MEDS: OLOPATADINE HCL 50 DROP BTL EACHEYE SCH (21:36)
--- NOTE | 2016-08-03 23:17 | PN ---
Subjective - Date and Time Seen Date: 08/03/16 Time: 23:15 Subjective Narrative: Mr. Russell is seen following recent admission. He is resting quietly in bed. He remains confused. He complains of persistent right hip pain. No N/V noted. He reports poor appetite and no bowel movement for the past 8 days. No tremor noted. Telemetry reads sinus rhythm in the 90s. Witt catheter is draining dark yellow urine, approximately 400 mL thus far. Repeat lactic acid was elevated at 3.4 at 1943. IV fluids of D5NS @ 130 mL/hr. He denies chest pain or shortness of breath. Objective - Review of Systems EENTM: Reports: No Symptoms Reported Respiratory: Reports: No Symptoms Reported Cardiac: Reports: No Symptoms Reported Abdominal: Reports: Other - Poor appetite Genitourinary Symptoms: Reports: No Symptoms Reported - Vitals Vitals: Last Vital Signs Temp 36.0 C L 08/03/16 21:51 Pulse 92 08/03/16 21:51 Resp 16 08/03/16 21:51 BP 99/50 08/03/16 21:51 Pulse Ox 91 08/03/16 21:51 - Abnormal Lab Findings Abnormal Lab Findings: Abnormal Lab Results 08/03/16 08/03/16 08/03/16 Range/Units 16:15 16:15 16:15 WBC 31.9 H (4.0-10.5) K/mm3 RBC 4.39 L (4.7-6.0) M/mm3 Hgb 12.8 L (13.5-18.0) gm/dL Hct 37.9 L (42.0-52.0) % MPV 10.5 H (6.0-9.5) fl Neutrophils % (Manual) 88 H (42-75) % Band Neuts % (Manual) 4 H (0-2.0) % Lymphocytes % (Manual) 3 L (20-51) % Immature Granulocytes 2 H (0-1) Neutrophils # (Manual) 28.1 H (1.3-6.0) K/mm3 Lymphocytes # (Manual) 1.0 L (1.5-3.5) k/mm3 Sodium 131 L (132-142) mmol/L Potassium 6.0 H D (3.4-4.6) mmol/L Chloride 92 L (97-106) mmol/L Anion Gap 17.8 H (6.8-13.8) mmol/L BUN 38 H D (6-23) mg/dL Creatinine 1.61 H D (0.4-1.4) mg/dL Est GFR (Non-Af Amer) 45 L D (60-130) mL/min BUN/Creatinine Ratio 23.6 H (9.0-21.6) Random Glucose 112 H (70-110) mg/dL Lactic Acid, Venous 3.7 H* (0.4-1.9) mmol/L Calcium Adj for Albumin 11.4 H (8.4-10.2) mg/dL Total Bilirubin 1.3 H (0.0-1.1) mg/dL AST 150 H (0-48) U/L Albumin 1.9 L (3.4-5.0) gm/dl Procalcitonin (0.05-0.50) ng/mL Urine Bacteria (NONE) Hyaline Casts (NONE) /LPF 08/03/16 08/03/16 08/03/16 Range/Units 16:15 16:15 19:04 WBC (4.0-10.5) K/mm3 RBC (4.7-6.0) M/mm3 Hgb (13.5-18.0) gm/dL Hct (42.0-52.0) % MPV (6.0-9.5) fl Neutrophils % (Manual) (42-75) % Band Neuts % (Manual) (0-2.0) % Lymphocytes % (Manual) (20-51) % Immature Granulocytes (0-1) Neutrophils # (Manual) (1.3-6.0) K/mm3 Lymphocytes # (Manual) (1.5-3.5) k/mm3 Sodium 130 L (132-142) mmol/L Potassium 6.0 H (3.4-4.6) mmol/L Chloride 92 L (97-106) mmol/L Anion Gap 16.9 H (6.8-13.8) mmol/L BUN (6-23) mg/dL Creatinine (0.4-1.4) mg/dL Est GFR (Non-Af Amer) (60-130) mL/min BUN/Creatinine Ratio (9.0-21.6) Random Glucose (70-110) mg/dL Lactic Acid, Venous 3.4 H* (0.4-1.9) mmol/L Calcium Adj for Albumin (8.4-10.2) mg/dL Total Bilirubin (0.0-1.1) mg/dL AST (0-48) U/L Albumin (3.4-5.0) gm/dl Procalcitonin 5.58 H (0.05-0.50) ng/mL Urine Bacteria (NONE) Hyaline Casts (NONE) /LPF 08/03/16 Range/Units 19:45 WBC (4.0-10.5) K/mm3 RBC (4.7-6.0) M/mm3 Hgb (13.5-18.0) gm/dL Hct (42.0-52.0) % MPV (6.0-9.5) fl Neutrophils % (Manual) (42-75) % Band Neuts % (Manual) (0-2.0) % Lymphocytes % (Manual) (20-51) % Immature Granulocytes (0-1) Neutrophils # (Manual) (1.3-6.0) K/mm3 Lymphocytes # (Manual) (1.5-3.5) k/mm3 Sodium (132-142) mmol/L Potassium (3.4-4.6) mmol/L Chloride (97-106) mmol/L Anion Gap (6.8-13.8) mmol/L BUN (6-23) mg/dL Creatinine (0.4-1.4) mg/dL Est GFR (Non-Af Amer) (60-130) mL/min BUN/Creatinine Ratio (9.0-21.6) Random Glucose (70-110) mg/dL Lactic Acid, Venous (0.4-1.9) mmol/L Calcium Adj for Albumin (8.4-10.2) mg/dL Total Bilirubin (0.0-1.1) mg/dL AST (0-48) U/L Albumin (3.4-5.0) gm/dl Procalcitonin (0.05-0.50) ng/mL Urine Bacteria 1+ H (NONE) Hyaline Casts 5-10 H (NONE) /LPF - Exam Constitutional: Present: Alert - Oriented to self, place, and situation., No distress ENT Exam: Present: other - Large area of ecchymosis to the left side of the face and laceration above the left eye which is scabbed. Respiratory: Present: chest non-tender, lungs clear Cardiovascular/Chest: Present: normal peripheral pulses, regular rate, rhythm, no edema Abdomen: Present: Normal bowel sounds, soft, nontender Skin Exam: Present: other - Multiple areas of ecchymosis on the face, forearms. Small areas of ecchymosis on the left leg. 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 Leukocytosis: Continue cefepime 1g IV every 12 hours. Prior to admission, he failed outpatient treatment of pneumonia with levofloxacin. Trend CBC w/ diff, lactic acid. 2. Dehydration: Continue D5NS @ 130 mL/hr. Closely monitor renal function. 3. COPD: O2 via nasal cannula to keep sats>90%. Continue Spiriva daily. Prednisone increased from 10 mg daily to 20 mg daily. Monitor blood glucose while using glucocorticoids. 4. Pneumonia, healthcare associated: Continue cefepime as described above. Proceed with planned PET scan as there is concern for malignancy. 5. ETOH dependence: Thiamine replacement. Monitor for s/s of withdrawal. Consider using lorazepam as needed. - Problems/Diagnosis (1) Constipation Problem: Acute (2) Failure of outpatient treatment Problem: Acute (3) Dehydration Problem: Acute (4) Generalized weakness Problem: Acute (5) Leukocytosis Problem: Acute Qualifiers: Leukocytosis type: unspecified Qualified Code(s): D72.829 - Elevated white blood cell count, unspecified
[2016-08-04] MEDS: BISACODYL 10 MG SUPP.RECT RC SCH ×2 (02:18→05:33)
[2016-08-04] MEDS: HYDROcodone/ACETAMINOPHEN 1 EACH TABLET PO PRN ×2 (02:19→08:45)
[2016-08-04] MEDS: DEXTROSE 5%-NORMAL SALINE 1,000 ML IV PRN ×2 (02:25→13:12)
[2016-08-04 05:23] LABS: Hematocrit 29.7 % (42.0-52.0); Hemoglobin 9.9 gm/dL (13.5-18.0); Mean Cell Volume 87.4 fl (78-100); Mean Corpuscular Hemoglobin 29.1 pg (27-31); Mean Corpuscular Hgb Conc 33.3 g/dl (32-36); Mean Platelet Volume 10.3 fl (6.0-9.5); Neutrophil # 15.4 K/mm3 (1.3-6.0); Neutrophil % 83.1 % (42-75.0); Platelet Count 186 K/mm3 (150-450); Red Cell Distribution Width 12.8 % (11.5-14.0); White Blood Count 18.5 K/mm3 (4.0-10.5)
[2016-08-04] MEDS: CEFEPIME HCL 1 GM in DEXTROSE 5 % IN WATER 100 ML IV SCH ×4 (05:33→18:14)
[2016-08-04 06:02] LABS: Anion Gap 10.5 mmol/L (6.8-13.8); BUN/Creatinine Ratio 34.7 (9.0-21.6); Calcium * 8.3 mg/dL (7.9-10.9); Potassium 4.5 mmol/L (3.4-4.6)
[2016-08-04] MEDS ORDERED: LORazepam 2 MG/ML DISP.SYRIN IV PRN ×3 (07:52)
[2016-08-04] MEDS ORDERED: THIAMINE HCL 100 MG/ML VIAL IM STA (07:52)
[2016-08-04] MEDS: FOLIC ACID 1 MG TABLET PO SCH (08:38)
[2016-08-04] MEDS: MULTIVITAMINS 1 CAP CAPSULE PO SCH (08:38)
[2016-08-04] MEDS: predniSONE 20 MG TABLET PO SCH (08:38)
[2016-08-04] MEDS: THIAMINE HCL 100 MG TABLET PO SCH (08:39)
[2016-08-04] MEDS: OLOPATADINE HCL 50 DROP BTL EACHEYE SCH ×2 (08:40→20:25)
[2016-08-04] MEDS: FLUTICASONE/SALMETEROL 14 PUFF DISK.W.DEV IH SCH ×2 (08:41→20:24)
[2016-08-04] MEDS ORDERED: LEVOFLOXACIN 750 MG TABLET PO SCH (09:00)
[2016-08-04] MEDS ORDERED: THIAMINE HCL 100 MG TABLET PO SCH (09:00)
[2016-08-04] MEDS ORDERED: FOLIC ACID 1 MG TABLET PO SCH (09:00)
--- NOTE | 2016-08-04 13:19 | PN ---
Subjective - Date and Time Seen Date: 08/04/16 Time: 07:20 Subjective Narrative: Better. Somnolent. BP stable. Bowels working. Wants to sleep. Less pain. Objective - Review of Systems Generalized/Overall Review: Reports: Malaise, Fatigue EENTM: Reports: No Symptoms Reported Respiratory: Reports: Shortness of Breath Cardiac: Reports: No Symptoms Reported Abdominal: Reports: Nausea, Diarrhea Genitourinary Symptoms: Reports: No Symptoms Reported Musculoskeletal Complaints: Reports: Joint Pain, Back Pain, Muscle Pain Neurological: Reports: Weakness, Pre-existing Deficit Skin: Reports: No Symptoms Reported, Bruising Endocrine: Reports: No Symptoms Reported Misc: All systems neg except as marked - Vitals Vitals: Last Vital Signs Selected Entries 08/04/16 06:16 Temperature 36.9 C Temperature Oral Source Pulse Rate 99 Respiratory 28 H Rate Blood Pressure 116/55 Blood Pressure Supine Position O2 Sat by Pulse 93 Oximetry Oxygen Delivery Nasal Cannula Method Oxygen Flow 2.5 Rate - Abnormal Lab Findings Abnormal Lab Findings: Abnormal Lab Results 08/03/16 08/03/16 08/03/16 Range/Units 16:15 16:15 16:15 WBC 31.9 H (4.0-10.5) K/mm3 RBC 4.39 L (4.7-6.0) M/mm3 Hgb 12.8 L (13.5-18.0) gm/dL Hct 37.9 L (42.0-52.0) % MPV 10.5 H (6.0-9.5) fl Immature Gran % (Auto) (0.001-0.429) % Immature Gran # (Auto) (0.000-0.0310) K/mm3 Neutrophils % (42-75.0) % Neutrophils % (Manual) 88 H (42-75) % Band Neuts % (Manual) 4 H (0-2.0) % Lymphocytes % (20-51) % Lymphocytes % (Manual) 3 L (20-51) % Immature Granulocytes 2 H (0-1) Neutrophils # (1.3-6.0) K/mm3 Neutrophils # (Manual) 28.1 H (1.3-6.0) K/mm3 Lymphocytes # (1.5-3.5) k/mm3 Lymphocytes # (Manual) 1.0 L (1.5-3.5) k/mm3 Monocytes # (0.0-1.0) k/mm3 Sodium 131 L (132-142) mmol/L Potassium 6.0 H D (3.4-4.6) mmol/L Chloride 92 L (97-106) mmol/L Anion Gap 17.8 H (6.8-13.8) mmol/L BUN 38 H D (6-23) mg/dL Creatinine 1.61 H D (0.4-1.4) mg/dL Est GFR (Non-Af Amer) 45 L D (60-130) mL/min BUN/Creatinine Ratio 23.6 H (9.0-21.6) Random Glucose 112 H (70-110) mg/dL Lactic Acid, Venous 3.7 H* (0.4-1.9) mmol/L Calcium Adj for Albumin 11.4 H (8.4-10.2) mg/dL Total Bilirubin 1.3 H (0.0-1.1) mg/dL AST 150 H (0-48) U/L Albumin 1.9 L (3.4-5.0) gm/dl Procalcitonin (0.05-0.50) ng/mL Urine Bacteria (NONE) Hyaline Casts (NONE) /LPF 08/03/16 08/03/16 08/03/16 Range/Units 16:15 16:15 19:04 WBC (4.0-10.5) K/mm3 RBC (4.7-6.0) M/mm3 Hgb (13.5-18.0) gm/dL Hct (42.0-52.0) % MPV (6.0-9.5) fl Immature Gran % (Auto) (0.001-0.429) % Immature Gran # (Auto) (0.000-0.0310) K/mm3 Neutrophils % (42-75.0) % Neutrophils % (Manual) (42-75) % Band Neuts % (Manual) (0-2.0) % Lymphocytes % (20-51) % Lymphocytes % (Manual) (20-51) % Immature Granulocytes (0-1) Neutrophils # (1.3-6.0) K/mm3 Neutrophils # (Manual) (1.3-6.0) K/mm3 Lymphocytes # (1.5-3.5) k/mm3 Lymphocytes # (Manual) (1.5-3.5) k/mm3 Monocytes # (0.0-1.0) k/mm3 Sodium 130 L (132-142) mmol/L Potassium 6.0 H (3.4-4.6) mmol/L Chloride 92 L (97-106) mmol/L Anion Gap 16.9 H (6.8-13.8) mmol/L BUN (6-23) mg/dL Creatinine (0.4-1.4) mg/dL Est GFR (Non-Af Amer) (60-130) mL/min BUN/Creatinine Ratio (9.0-21.6) Random Glucose (70-110) mg/dL Lactic Acid, Venous 3.4 H* (0.4-1.9) mmol/L Calcium Adj for Albumin (8.4-10.2) mg/dL Total Bilirubin (0.0-1.1) mg/dL AST (0-48) U/L Albumin (3.4-5.0) gm/dl Procalcitonin 5.58 H (0.05-0.50) ng/mL Urine Bacteria (NONE) Hyaline Casts (NONE) /LPF 08/03/16 08/04/16 08/04/16 Range/Units 19:45 05:20 05:20 WBC 18.5 H D (4.0-10.5) K/mm3 RBC 3.40 L (4.7-6.0) M/mm3 Hgb 9.9 L (13.5-18.0) gm/dL Hct 29.7 L (42.0-52.0) % MPV 10.3 H (6.0-9.5) fl Immature Gran % (Auto) 6.60 H (0.001-0.429) % Immature Gran # (Auto) 1.22 H (0.000-0.0310) K/mm3 Neutrophils % 83.1 H (42-75.0) % Neutrophils % (Manual) (42-75) % Band Neuts % (Manual) (0-2.0) % Lymphocytes % 2.8 L (20-51) % Lymphocytes % (Manual) (20-51) % Immature Granulocytes (0-1) Neutrophils # 15.4 H (1.3-6.0) K/mm3 Neutrophils # (Manual) (1.3-6.0) K/mm3 Lymphocytes # 0.5 L (1.5-3.5) k/mm3 Lymphocytes # (Manual) (1.5-3.5) k/mm3 Monocytes # 1.3 H (0.0-1.0) k/mm3 Sodium (132-142) mmol/L Potassium (3.4-4.6) mmol/L Chloride (97-106) mmol/L Anion Gap (6.8-13.8) mmol/L BUN 35 H (6-23) mg/dL Creatinine (0.4-1.4) mg/dL Est GFR (Non-Af Amer) (60-130) mL/min BUN/Creatinine Ratio 34.7 H (9.0-21.6) Random Glucose 137 H (70-110) mg/dL Lactic Acid, Venous (0.4-1.9) mmol/L Calcium Adj for Albumin (8.4-10.2) mg/dL Total Bilirubin (0.0-1.1) mg/dL AST (0-48) U/L Albumin (3.4-5.0) gm/dl Procalcitonin (0.05-0.50) ng/mL Urine Bacteria 1+ H (NONE) Hyaline Casts 5-10 H (NONE) /LPF - Exam Constitutional: Present: Well developed, Mild distress, Lethargic, Somnolent ENT Exam: Present: normal ENT inspection, dry mucous membranes Neck: Present: non-tender, trachea midline Respiratory: Present: decreased breath sounds, rhonchi Cardiovascular/Chest: Present: regular rate, rhythm, no edema Abdomen: Present: Normal bowel sounds, soft, nontender, nondistended, no rebound tenderness, no hepatospenomegaly Extremity: Present: pedal edema Skin Exam: Present: no cyanosis, cool/dry, other - bruising, especially face. Neurologic: Present: disoriented x 3 Appearance: Present: disheveled, impaired insight, impaired recent memory, impaired remote memory Cauti Physician Documentation - Urinary Catheter Management Urethral (Witt) Urethral Indwelling: Yes Date of Insertion: 08/03/16 Time of Insertion: 18:53 Assessment/Plan Plan Narrative: wean O2, follow labs, up, IV antibiotics, PET scan, bone scan next week, advance diet. - Problems/Diagnosis (1) Failure of outpatient treatment Problem: Acute (2) Constipation Problem: Acute (3) Abnormal chest CT Problem: Acute (4) Dehydration Problem: Acute (5) Generalized weakness Problem: Acute (6) Pneumonia Problem: Acute Qualifiers: (7) CHF (congestive heart failure) Problem: Chronic Qualifiers: (8) COPD (chronic obstructive pulmonary disease) Problem: Chronic Qualifiers: (9) EtOH dependence Problem: Chronic (10) FTT (failure to thrive) in adult Problem: Chronic
[2016-08-04] MEDS: ENOXAPARIN SODIUM 40 MG/0.4 ML SYRG SC SCH (16:12)
[2016-08-05] MEDS: HYDROcodone/ACETAMINOPHEN 1 EACH TABLET PO PRN ×2 (00:12→06:16)
[2016-08-05] MEDS: DEXTROSE 5%-NORMAL SALINE 1,000 ML IV PRN (04:45)
[2016-08-05 05:38] LABS: Hematocrit 32.4 % (42.0-52.0); Hemoglobin 10.9 gm/dL (13.5-18.0); Mean Cell Volume 86.6 fl (78-100); Mean Corpuscular Hemoglobin 29.1 pg (27-31); Mean Corpuscular Hgb Conc 33.6 g/dl (32-36); Mean Platelet Volume 10.5 fl (6.0-9.5); Platelet Count 186 K/mm3 (150-450); Red Blood Count 3.74 M/mm3 (4.7-6.0); Red Cell Distribution Width 13.2 % (11.5-14.0); White Blood Count 23.3 K/mm3 (4.0-10.5)
[2016-08-05] MEDS: CEFEPIME HCL 1 GM in DEXTROSE 5 % IN WATER 100 ML IV SCH ×4 (05:38→17:31)
[2016-08-05 05:49] LABS: Total Cells Counted 100
[2016-08-05 06:03] LABS: Albumin * 1.4 gm/dl (3.4-5.0); Anion Gap 12.8 mmol/L (6.8-13.8); BUN/Creatinine Ratio 33.7 (9.0-21.6); Ca. Corrected For Albumin 10.7 mg/dL (8.4-10.2); Calcium * 8.9 mg/dL (7.9-10.9); Carbon Dioxide 28.8 mmol/L (24-32.6); Potassium 4.6 mmol/L (3.4-4.6); Total Protein 5.1 gm/dL (6.2-8.2)
[2016-08-05 06:14] LABS: Immature Granulocyte 2 (0-1); Lymphocyte 7 % (20-51); Monocyte 1 % (0-9); Neutrophil 90 % (42-75); Platelet Estimate Normal (NORMAL); RBC Morphology Normal (NORMAL)
[2016-08-05] MEDS: MULTIVITAMINS 1 CAP CAPSULE PO SCH (09:05)
[2016-08-05] MEDS: predniSONE 20 MG TABLET PO SCH (09:05)
[2016-08-05] MEDS: FOLIC ACID 1 MG TABLET PO SCH (09:05)
[2016-08-05] MEDS: THIAMINE HCL 100 MG TABLET PO SCH (09:05)
[2016-08-05] MEDS: FLUTICASONE/SALMETEROL 14 PUFF DISK.W.DEV IH SCH ×2 (09:06→20:15)
[2016-08-05] MEDS: OLOPATADINE HCL 50 DROP BTL EACHEYE SCH ×2 (09:06→20:15)
[2016-08-05] MEDS ORDERED: HYDROcodone/ACETAMINOPHEN 1 EACH TABLET PO PRN (10:33)
[2016-08-05] MEDS ORDERED: NORMAL SALINE 1,000 ML IV ONE ×4 (10:33→16:30)
[2016-08-05] MEDS ORDERED: VANCOMYCIN HCL 1 GM in DEXTROSE 5 % IN WATER 250 ML IV SCH ×2 (14:15)
[2016-08-05] MEDS: metroNIDAZOLE/SODIUM CHLORIDE 500 MG/100 ML BAG IV SCH ×2 (14:52→21:19)
[2016-08-05] MEDS: HYDROmorphone HCL 1 MG/ML DISP.SYRIN IV PRN ×3 (15:00→21:50)
[2016-08-05] MEDS: VANCOMYCIN HCL 1 GM in DEXTROSE 5 % IN WATER 250 ML IV SCH ×2 (16:52)
[2016-08-05] MEDS: ENOXAPARIN SODIUM 40 MG/0.4 ML SYRG SC SCH (16:55)
[2016-08-05] MEDS ORDERED: POTASSIUM CHLORIDE 20 MEQ in DEXTROSE 5%-NORMAL SALINE 990 ML IV SCH (19:15)
--- NOTE | 2016-08-05 20:38 | PN ---
Subjective - Date and Time Seen Date: 08/05/16 Time: 20:33 Subjective Narrative: Today was hypotensive with poor urine output, elevated lactic acid and procalcitonin. Responded well to 4 liters of IV fluids, therefor was low on IV volume. now seems stable. I also expanded his antibiotic coverage. Objective - Review of Systems Generalized/Overall Review: Reports: No Symptoms Reported - somnolent. - Vitals Vitals: Last Vital Signs Selected Entries 08/05/16 08/05/16 18:47 20:13 Temperature 36.6 C Temperature Oral Source Pulse Rate 102 H 108 H Respiratory 20 18 Rate Respiratory Normal Depth Respiratory Normal Effort Non-Labored Respiratory Normal Pattern Blood Pressure 108/51 114/53 Blood Pressure 73 Mean Blood Pressure Supine Position O2 Sat by Pulse 94 93 Oximetry Oxygen Delivery Nasal Cannula Nasal Cannula Method Oxygen Flow 2 2 Rate - Abnormal Lab Findings Abnormal Lab Findings: Abnormal Lab Results 08/05/16 08/05/16 08/05/16 Range/Units 05:30 05:30 14:24 WBC 23.3 H D (4.0-10.5) K/mm3 RBC 3.74 L (4.7-6.0) M/mm3 Hgb 10.9 L (13.5-18.0) gm/dL Hct 32.4 L (42.0-52.0) % MPV 10.5 H (6.0-9.5) fl Neutrophils % (Manual) 90 H (42-75) % Lymphocytes % (Manual) 7 L (20-51) % Immature Granulocytes 2 H (0-1) Neutrophils # (Manual) 21.0 H (1.3-6.0) K/mm3 BUN 28 H (6-23) mg/dL BUN/Creatinine Ratio 33.7 H (9.0-21.6) Random Glucose 131 H (70-110) mg/dL Lactic Acid, Venous 2.0 H (0.4-1.9) mmol/L Calcium Adj for Albumin 10.7 H (8.4-10.2) mg/dL AST 138 H (0-48) U/L Alkaline Phosphatase 184 H (50-170) U/L Total Protein 5.1 L (6.2-8.2) gm/dL Albumin 1.4 L (3.4-5.0) gm/dl Procalcitonin (0.05-0.50) ng/mL 08/05/16 Range/Units 14:24 WBC (4.0-10.5) K/mm3 RBC (4.7-6.0) M/mm3 Hgb (13.5-18.0) gm/dL Hct (42.0-52.0) % MPV (6.0-9.5) fl Neutrophils % (Manual) (42-75) % Lymphocytes % (Manual) (20-51) % Immature Granulocytes (0-1) Neutrophils # (Manual) (1.3-6.0) K/mm3 BUN (6-23) mg/dL BUN/Creatinine Ratio (9.0-21.6) Random Glucose (70-110) mg/dL Lactic Acid, Venous (0.4-1.9) mmol/L Calcium Adj for Albumin (8.4-10.2) mg/dL AST (0-48) U/L Alkaline Phosphatase (50-170) U/L Total Protein (6.2-8.2) gm/dL Albumin (3.4-5.0) gm/dl Procalcitonin 2.27 H (0.05-0.50) ng/mL - Exam Constitutional: Present: Well developed, Well nourished, Somnolent ENT Exam: Present: normal ENT inspection Neck: Present: normal inspection Respiratory: Present: lungs clear, normal breath sounds Cardiovascular/Chest: Present: regular rate, rhythm, no edema, tachycardia Abdomen: Present: Normal bowel sounds, soft, nontender, nondistended, no rebound tenderness, no hepatospenomegaly, no masses Extremity: Present: normal inspection, no pedal edema Skin Exam: Present: normal color, warm/dry, no cyanosis Neurologic: Present: depressed affect Appearance: Present: appropriate appearance Cauti Physician Documentation - Urinary Catheter Management Urethral (Witt) Urethral Indwelling: Yes Date of Insertion: 08/03/16 Time of Insertion: 18:53 Date of Removal: 08/05/16 Time of Removal: 17:47 Assessment/Plan Plan Narrative: antibiotics, fluids, home early next week, PT OT, bone scan, PET scan as outpat . - Problems/Diagnosis (1) Failure of outpatient treatment Problem: Acute (2) Constipation Problem: Resolved (3) Abnormal chest CT Problem: Acute (4) Dehydration Problem: Acute (5) Generalized weakness Problem: Acute (6) Pneumonia Problem: Acute Qualifiers: (7) CHF (congestive heart failure) Problem: Chronic Qualifiers: (8) COPD (chronic obstructive pulmonary disease) Problem: Chronic Qualifiers: (9) EtOH dependence Problem: Chronic (10) FTT (failure to thrive) in adult Problem: Chronic
[2016-08-06 00:36] LABS: Hematocrit 31.2 % (42.0-52.0); Hemoglobin 10.3 gm/dL (13.5-18.0); Mean Cell Volume 87.9 fl (78-100); Mean Platelet Volume 10.7 fl (6.0-9.5); Platelet Count 199 K/mm3 (150-450); Red Blood Count 3.55 M/mm3 (4.7-6.0); Red Cell Distribution Width 13.4 % (11.5-14.0); White Blood Count 21.7 K/mm3 (4.0-10.5)
[2016-08-06 00:44] LABS: Total Cells Counted 100
[2016-08-06 00:50] LABS: ALT 39 U/L (19-67); AST 157 U/L (0-48); Albumin * 1.2 gm/dl (3.4-5.0); Alkaline Phosphatase * 204 U/L (50-170); BUN/Creatinine Ratio 32.4 (9.0-21.6); Blood Urea Nitrogen 24 mg/dL (6-23); Ca. Corrected For Albumin 10.3 mg/dL (8.4-10.2); Calcium * 8.4 mg/dL (7.9-10.9); Chloride 105 mmol/L (97-106); Glucose * 121 mg/dL (70-110); Magnesium 1.6 mg/dL (1.2-2.8); Phosphorus 3.1 mg/dL (2.2-4.2); Sodium 139 mmol/L (132-142); Troponin I Less than 0.017 ng/ml (0.00-0.10)
[2016-08-06 01:03] LABS: Atypical (Reactive) Lymph 1 % (0-2); Band 4 % (0-2.0); Hypersegmented Polys 3+; Monocyte 8 % (0-9); Neutrophil 82 % (42-75); Neutrophil # 17.8 K/mm3 (1.3-6.0); Platelet Estimate Normal (NORMAL)
[2016-08-06 01:04] LABS: Rouleaux 3+; Toxic Granulation 1+
[2016-08-06 01:06] LABS: Lymphocyte 6 % (20-51)
[2016-08-06] MEDS: DEXTROSE 5%-0.5 NORMAL SALINE 1,000 ML IV PRN ×3 (01:29→21:24)
[2016-08-06] MEDS: VANCOMYCIN HCL 1 GM in DEXTROSE 5 % IN WATER 250 ML IV SCH ×4 (02:12→14:44)
[2016-08-06] MEDS: HYDROmorphone HCL 1 MG/ML DISP.SYRIN IV PRN ×7 (04:17→23:11)
[2016-08-06] MEDS: metroNIDAZOLE/SODIUM CHLORIDE 500 MG/100 ML BAG IV SCH ×3 (05:28→21:24)
[2016-08-06 05:55] LABS: Hematocrit 30.5 % (42.0-52.0); Hemoglobin 10.1 gm/dL (13.5-18.0); Mean Cell Volume 86.9 fl (78-100); Mean Corpuscular Hemoglobin 28.8 pg (27-31); Mean Corpuscular Hgb Conc 33.1 g/dl (32-36); Platelet Count 165 K/mm3 (150-450); Red Blood Count 3.51 M/mm3 (4.7-6.0); Red Cell Distribution Width 13.6 % (11.5-14.0); White Blood Count 24.9 K/mm3 (4.0-10.5)
[2016-08-06 06:04] LABS: Total Cells Counted 100
[2016-08-06 06:09] LABS: Albumin * 1.2 gm/dl (3.4-5.0); Anion Gap 12.3 mmol/L (6.8-13.8); BUN/Creatinine Ratio 30.3 (9.0-21.6); Bilirubin Direct 0.6 mg/dL (0.0-0.3); Bilirubin, Total 1.2 mg/dL (0.0-1.1); Bilirubin,Indirect 0.6 mg/dL (0.1-0.7); Calcium * 8.5 mg/dL (7.9-10.9); Carbon Dioxide 27.2 mmol/L (24-32.6); Estimated Creat Clear 83.7; Potassium 4.5 mmol/L (3.4-4.6); Total Protein 4.8 gm/dL (6.2-8.2)
[2016-08-06] MEDS ORDERED: FUROSEMIDE 10 MG/ML VIAL IV ONE (06:32)
[2016-08-06 06:39] LABS: Atypical (Reactive) Lymph 1 % (0-2); Band 5 % (0-2.0); Lymphocyte 8 % (20-51); Neutrophil 86 % (42-75); Neutrophil # 21.4 K/mm3 (1.3-6.0)
[2016-08-06 06:40] LABS: Hypochromia 1+; Platelet Estimate Normal (NORMAL)
[2016-08-06] MEDS: CEFEPIME HCL 1 GM in DEXTROSE 5 % IN WATER 100 ML IV SCH ×4 (06:55→18:44)
[2016-08-06] MEDS: FLUTICASONE/SALMETEROL 14 PUFF DISK.W.DEV IH SCH ×2 (09:34→20:27)
[2016-08-06] MEDS: FOLIC ACID 1 MG TABLET PO SCH (09:36)
[2016-08-06] MEDS: MULTIVITAMINS 1 CAP CAPSULE PO SCH (09:36)
[2016-08-06] MEDS: predniSONE 20 MG TABLET PO SCH (09:37)
[2016-08-06] MEDS: OLOPATADINE HCL 50 DROP BTL EACHEYE SCH ×2 (09:37→20:27)
[2016-08-06] MEDS: THIAMINE HCL 100 MG TABLET PO SCH (09:37)
[2016-08-06] MEDS: ENOXAPARIN SODIUM 40 MG/0.4 ML SYRG SC SCH (17:08)
--- NOTE | 2016-08-06 17:27 | PN ---
Subjective - Date and Time Seen Date: 08/06/16 Time: 06:35 Subjective Narrative: Today blood pressure better. WBC count up. Liver enzymes up. Urine output improved. Possible cholecystitis or passive liver congeistion. Objective - Review of Systems Generalized/Overall Review: Reports: No Symptoms Reported - Vitals Vitals: Last Vital Signs Selected Entries 08/06/16 04:00 Pulse Rate 130 H Respiratory 20 Rate Blood Pressure 126/53 Blood Pressure Supine Position O2 Sat by Pulse 96 Oximetry Oxygen Delivery Nasal Cannula Method Oxygen Flow 2 Rate - Abnormal Lab Findings Abnormal Lab Findings: Abnormal Lab Results 08/06/16 08/06/16 08/06/16 Range/Units 00:22 00:22 05:48 WBC 21.7 H 24.9 H (4.0-10.5) K/mm3 RBC 3.55 L 3.51 L (4.7-6.0) M/mm3 Hgb 10.3 L 10.1 L (13.5-18.0) gm/dL Hct 31.2 L 30.5 L (42.0-52.0) % MPV 10.7 H 11.0 H (6.0-9.5) fl Neutrophils % (Manual) 82 H 86 H (42-75) % Band Neuts % (Manual) 4 H 5 H (0-2.0) % Lymphocytes % (Manual) 6 L 8 L (20-51) % Neutrophils # (Manual) 17.8 H 21.4 H (1.3-6.0) K/mm3 Lymphocytes # (Manual) 1.3 L (1.5-3.5) k/mm3 Monocytes # (Manual) 1.7 H (0.0-1.0) k/mm3 Potassium 5.0 H (3.4-4.6) mmol/L BUN 24 H (6-23) mg/dL BUN/Creatinine Ratio 32.4 H (9.0-21.6) Random Glucose 121 H (70-110) mg/dL Calcium Adj for Albumin 10.3 H (8.4-10.2) mg/dL Total Bilirubin (0.0-1.1) mg/dL Direct Bilirubin (0.0-0.3) mg/dL AST 157 H (0-48) U/L Alkaline Phosphatase 204 H (50-170) U/L Total Protein 5.0 L (6.2-8.2) gm/dL Albumin 1.2 L (3.4-5.0) gm/dl Procalcitonin (0.05-0.50) ng/mL 08/06/16 08/06/16 Range/Units 05:48 05:48 WBC (4.0-10.5) K/mm3 RBC (4.7-6.0) M/mm3 Hgb (13.5-18.0) gm/dL Hct (42.0-52.0) % MPV (6.0-9.5) fl Neutrophils % (Manual) (42-75) % Band Neuts % (Manual) (0-2.0) % Lymphocytes % (Manual) (20-51) % Neutrophils # (Manual) (1.3-6.0) K/mm3 Lymphocytes # (Manual) (1.5-3.5) k/mm3 Monocytes # (Manual) (0.0-1.0) k/mm3 Potassium (3.4-4.6) mmol/L BUN (6-23) mg/dL BUN/Creatinine Ratio 30.3 H (9.0-21.6) Random Glucose 136 H (70-110) mg/dL Calcium Adj for Albumin (8.4-10.2) mg/dL Total Bilirubin 1.2 H (0.0-1.1) mg/dL Direct Bilirubin 0.6 H (0.0-0.3) mg/dL AST 152 H (0-48) U/L Alkaline Phosphatase 214 H (50-170) U/L Total Protein 4.8 L (6.2-8.2) gm/dL Albumin 1.2 L (3.4-5.0) gm/dl Procalcitonin 3.75 H (0.05-0.50) ng/mL - Exam Constitutional: Present: Somnolent ENT Exam: Present: normal ENT inspection Neck: Present: normal inspection Respiratory: Present: decreased breath sounds Cardiovascular/Chest: Present: tachycardia Abdomen: Present: Normal bowel sounds, soft, nontender, no hepatospenomegaly, no masses Extremity: Absent: pedal edema Skin Exam: Present: no cyanosis, cool/dry Neurologic: Absent: oriented x 3 Appearance: Present: appropriate appearance Eye contact: Present: other Cauti Physician Documentation - Urinary Catheter Management Urethral (Witt) Urethral Indwelling: Yes Date of Insertion: 08/06/16 Time of Insertion: 01:00 Date of Removal: 08/05/16 Time of Removal: 17:47 Assessment/Plan Plan Narrative: sepsis pneumonia lung cancer caught up with fluids probably possible cholecystitis vs possible passive congestion of liver and gallbladder vs metastatic disease. possible alcohol withdrawal. iv antibiotics. iv fluids. labs. monitor. lasix when needed. transfer if and when family wishes. - Problems/Diagnosis (1) Failure of outpatient treatment Problem: Acute (2) Constipation Problem: Resolved (3) Abnormal chest CT Problem: Acute (4) Dehydration Problem: Acute (5) Generalized weakness Problem: Acute (6) Pneumonia Problem: Acute Qualifiers: (7) CHF (congestive heart failure) Problem: Chronic Qualifiers: (8) COPD (chronic obstructive pulmonary disease) Problem: Chronic Qualifiers: (9) EtOH dependence Problem: Chronic (10) FTT (failure to thrive) in adult Problem: Chronic
[2016-08-06] MEDS ORDERED: ACETAMINOPHEN 650 MG SUPP.RECT RC ONE (23:08)
[2016-08-06] MEDS ORDERED: METOPROLOL TARTRATE 1 MG/ML AMPUL IV ONE (23:15)
[2016-08-06] MEDS ORDERED: [UNRECOGNIZED DRUG - OTHER] IV PRN (23:57)
[2016-08-06] MEDS ORDERED: DEXTROSE 5% IV PRN (23:57)
[2016-08-07] MEDS: HYDROmorphone HCL 1 MG/ML DISP.SYRIN IV PRN ×2 (02:48→07:00)
[2016-08-07] MEDS: DEXTROSE 5%-0.5 NORMAL SALINE 1,000 ML IV PRN (03:25)
[2016-08-07] MEDS: VANCOMYCIN HCL 1 GM in DEXTROSE 5 % IN WATER 250 ML IV SCH ×2 (03:26)
[2016-08-07 05:18] LABS: Hematocrit 28.8 % (42.0-52.0); Hemoglobin 9.6 gm/dL (13.5-18.0); Mean Cell Volume 87.3 fl (78-100); Mean Corpuscular Hemoglobin 29.1 pg (27-31); Mean Corpuscular Hgb Conc 33.3 g/dl (32-36); Mean Platelet Volume 11.2 fl (6.0-9.5); Platelet Count 124 K/mm3 (150-450); Red Cell Distribution Width 13.4 % (11.5-14.0); White Blood Count 22.1 K/mm3 (4.0-10.5)
[2016-08-07] MEDS: metroNIDAZOLE/SODIUM CHLORIDE 500 MG/100 ML BAG IV SCH (05:25)
[2016-08-07 05:28] LABS: Total Cells Counted 100
[2016-08-07 05:38] LABS: Band 8 % (0-2.0); Immature Granulocyte 1 (0-1); Lymphocyte 5 % (20-51); Monocyte 2 % (0-9); Neutrophil 84 % (42-75); Neutrophil # 18.6 K/mm3 (1.3-6.0)
[2016-08-07 05:39] LABS: Platelet Estimate Decreased (NORMAL)
[2016-08-07 05:40] LABS: Toxic Granulation 1+
[2016-08-07 05:41] LABS: Hypochromia 1+; Target Cells Trace
[2016-08-07 05:45] LABS: Dohle Bodies Trace
[2016-08-07 05:46] LABS: Polychromasia Trace
[2016-08-07 05:53] LABS: Albumin * 1.1 gm/dl (3.4-5.0); Anion Gap 9.9 mmol/L (6.8-13.8); BUN/Creatinine Ratio 28.9 (9.0-21.6); Bilirubin, Total 1.2 mg/dL (0.0-1.1); Ca. Corrected For Albumin 10.5 mg/dL (8.4-10.2); Calcium * 8.5 mg/dL (7.9-10.9); Potassium 3.9 mmol/L (3.4-4.6); Total Protein 4.6 gm/dL (6.2-8.2)
[2016-08-07] MEDS: CEFEPIME HCL 1 GM in DEXTROSE 5 % IN WATER 100 ML IV SCH ×2 (07:05)
--- NOTE | 2016-08-07 07:55 | PN ---
<Jamey Camp - Last Filed: 08/07/16 10:17> Subjective Subjective Narrative: Appears clinically less stable, though wbc count lower. Family has opted for comfort care. I personally directed all of our nurse practitioner hospitalist' s care for this patient. Objective - Vitals Vitals: Last Vital Signs Temp 37.2 C 08/07/16 07:04 Pulse 124 H 08/07/16 07:04 Resp 24 H 08/07/16 07:04 BP 110/77 08/07/16 07:04 Pulse Ox 93 08/07/16 07:04 - Abnormal Lab Findings Abnormal Lab Findings: Abnormal Lab Results 08/07/16 08/07/16 Range/Units 05:14 05:14 WBC 22.1 H (4.0-10.5) K/mm3 RBC 3.30 L (4.7-6.0) M/mm3 Hgb 9.6 L (13.5-18.0) gm/dL Hct 28.8 L (42.0-52.0) % Plt Count 124 L (150-450) K/mm3 MPV 11.2 H (6.0-9.5) fl Neutrophils % (Manual) 84 H (42-75) % Band Neuts % (Manual) 8 H (0-2.0) % Lymphocytes % (Manual) 5 L (20-51) % Neutrophils # (Manual) 18.6 H (1.3-6.0) K/mm3 Lymphocytes # (Manual) 1.1 L (1.5-3.5) k/mm3 Platelet Estimate Decreased L (NORMAL) BUN/Creatinine Ratio 28.9 H (9.0-21.6) Random Glucose 141 H (70-110) mg/dL Calcium Adj for Albumin 10.5 H (8.4-10.2) mg/dL Total Bilirubin 1.2 H (0.0-1.1) mg/dL AST 162 H (0-48) U/L Alkaline Phosphatase 220 H (50-170) U/L B-Natriuretic Peptide 767 H (5-650) pg/mL Total Protein 4.6 L (6.2-8.2) gm/dL Albumin 1.1 L (3.4-5.0) gm/dl Assessment/Plan - Problems/Diagnosis (1) Failure of outpatient treatment Problem: Acute (2) Constipation Problem: Resolved (3) Abnormal chest CT Problem: Acute (4) Dehydration Problem: Acute (5) Generalized weakness Problem: Acute (6) Pneumonia Problem: Acute (7) CHF (congestive heart failure) Problem: Chronic (8) COPD (chronic obstructive pulmonary disease) Problem: Chronic (9) EtOH dependence Problem: Chronic (10) FTT (failure to thrive) in adult Problem: Chronic <Sofia Perkins - Last Filed: 08/07/16 13:09> Subjective - Date and Time Seen Date: 08/07/16 Time: 07:55 Subjective Narrative: pt c/o dyspnea. family wishes comfort care at this time. sg Objective - Review of Systems Generalized/Overall Review: Reports: Weakness, Weight loss Respiratory: Reports: Shortness of Breath Misc: All systems neg except as marked - unable to obtain a full ROS due to patient's clinical condition. - Vitals Vitals: Last Vital Signs Temp 36.4 C L 08/07/16 05:04 Pulse 123 H 08/07/16 05:04 Resp 18 08/07/16 05:04 BP 116/52 08/07/16 05:04 Pulse Ox 96 08/07/16 05:04 - Abnormal Lab Findings Abnormal Lab Findings: Abnormal Lab Results 08/07/16 08/07/16 Range/Units 05:14 05:14 WBC 22.1 H (4.0-10.5) K/mm3 RBC 3.30 L (4.7-6.0) M/mm3 Hgb 9.6 L (13.5-18.0) gm/dL Hct 28.8 L (42.0-52.0) % Plt Count 124 L (150-450) K/mm3 MPV 11.2 H (6.0-9.5) fl Neutrophils % (Manual) 84 H (42-75) % Band Neuts % (Manual) 8 H (0-2.0) % Lymphocytes % (Manual) 5 L (20-51) % Neutrophils # (Manual) 18.6 H (1.3-6.0) K/mm3 Lymphocytes # (Manual) 1.1 L (1.5-3.5) k/mm3 Platelet Estimate Decreased L (NORMAL) BUN/Creatinine Ratio 28.9 H (9.0-21.6) Random Glucose 141 H (70-110) mg/dL Calcium Adj for Albumin 10.5 H (8.4-10.2) mg/dL Total Bilirubin 1.2 H (0.0-1.1) mg/dL AST 162 H (0-48) U/L Alkaline Phosphatase 220 H (50-170) U/L B-Natriuretic Peptide 767 H (5-650) pg/mL Total Protein 4.6 L (6.2-8.2) gm/dL Albumin 1.1 L (3.4-5.0) gm/dl - Exam Constitutional: Present: Mild distress, Lethargic, Somnolent Neck: Present: supple Breasts: Present: Exam deferred Respiratory: Present: respiratory distress - mild, crackles, rhonchi Cardiovascular/Chest: Present: tachycardia, other - regular rate and rhythem with frequent PVCs. Abdomen: Present: soft, nondistended /Rectal: Present: Exam deferred Skin Exam: Present: no cyanosis, cool/dry Cauti Physician Documentation - Urinary Catheter Management Urethral (Witt) Urethral Indwelling: Yes Reason for Continuing Indwelling Catheter: End of life care Date of Insertion: 08/06/16 Time of Insertion: 01:00 Assessment/Plan Plan Narrative: WBC 21.7-> 22.1, neutrophils 82->84% with 4->8 bands interchange agent the last 24 hour. liver enzymes elevated more. lung ca. US shows possible mets to liver. overnight, heart rate elevated with decreased O2 sats. Family has elected comfort cares at this point. hospice consult. discussed case with daughter (POJorge L) and son in law - both verbalized their agreement to me for comfort cares. - Problems/Diagnosis (1) Dehydration Problem: Acute (2) Failure of outpatient treatment Problem: Acute (3) Constipation Problem: Resolved (4) Abnormal chest CT Problem: Acute (5) End of life care Problem: Acute (6) Generalized weakness Problem: Acute (7) CHF (congestive heart failure) Problem: Chronic Qualifiers: (8) COPD (chronic obstructive pulmonary disease) Problem: Chronic Qualifiers: (9) EtOH dependence Problem: Chronic (10) FTT (failure to thrive) in adult Problem: Chronic (11) HTN (hypertension) Problem: Chronic Qualifiers: Hypertension type: essential hypertension Qualified Code(s): I10 - Essential (primary) hypertension
[2016-08-07] MEDS ORDERED: PROCHLORPERAZINE EDISYLATE 5 MG/ML VIAL IV PRN (07:56)
[2016-08-07] MEDS ORDERED: POLYVINYL ALCOHOL 150 DROP BTL EACHEYE PRN (07:56)
[2016-08-07] MEDS ORDERED: ONDANSETRON HCL/PF 2 MG/ML VIAL IV PRN (07:56)
[2016-08-07] MEDS ORDERED: ATROPINE SULFATE 150 DROP BTL SL PRN (07:56)
[2016-08-07] MEDS ORDERED: LORazepam 2 MG/ML DISP.SYRIN IV ONE ×2 (07:56→14:44)
[2016-08-07 08:05] VITALS: BP 110/77
[2016-08-07] MEDS ORDERED: HYDROPHILIC OINTMENT 454 APPL JAR TP SCH (09:00)
[2016-08-07] MEDS: LORazepam 2 MG/ML DISP.SYRIN IV PRN ×2 (10:54→14:46)
[2016-08-07] MEDS ORDERED: fentaNYL 25 MCG PATCH.TD72 TD SCH (12:30)
[2016-08-07] MEDS ORDERED: VANCOMYCIN HCL LEVEL XX ONE (14:30)
[2016-08-07] MEDS ORDERED: LORazepam 2 MG/ML DISP.SYRIN IV PRN ×2 (14:44→14:45)
[2016-08-07] MEDS ORDERED: ACETAMINOPHEN 650 MG SUPP.RECT RC PRN (14:46)
--- NOTE | 2016-08-07 17:06 | DS ---
Discharge Summary - Provider Primary Care Provider: Jamey Camp Admitting Clinician: Jamey Camp Attending Physician on Admission: Jamey Camp Pronouncing Clinician: Sofia Perkins - Date and Time Date of : 08/04/16 Time of : 16:14 - Diagnosis/Cause of (1) Dehydration Problems: Acute (2) Failure of outpatient treatment Problems: Acute (3) Constipation Problems: Resolved (4) Abnormal chest CT Problems: Acute (5) End of life care Problems: Acute (6) Generalized weakness Problems: Acute (7) CHF (congestive heart failure) Problems: Chronic (8) COPD (chronic obstructive pulmonary disease) Problems: Chronic (9) EtOH dependence Problems: Chronic (10) FTT (failure to thrive) in adult Problems: Chronic (11) HTN (hypertension) Problems: Chronic - Summary Details (narrative): The patient is a 75 year old /White male with a hx of etoh abuse, chf, copd, pneumonia and chest imaging studies probably representing lung cancer. He was recently in [facility] twice for pneumonia, signing out against medical advice each time. He presents to the office today for new pt, hospital follow up ( normally seeing Dr. Domingo) and reports ('s, sons' report) that his pain is not controlled on current pain medicine and that he has not had a BM for 8 days. He has not really been eating or drinking either. The patient is accompanied by his and two sons for the visit today. The patient lives with his spouse. The patient needs assistance with bathing, dressing, getting up to the bathroom, walking, transferring from bed to chair, getting out of bed , shopping, meal preparation, eating, and going to appointments and assistance is provided a spouse. The patient was admitted for pneumonia and dehydration. started on iv cefepime and iv vanco. depsite this WBC 21.7-> 22.1, neutrophils 82->84% with 4->8 bands heel coverer the last 24 hour. liver enzymes elevated more. lung ca. US shows possible mets to liver. overnight, heart rate elevated with decreased O2 sats. Family has elected comfort cares at this point. hospice consult. discussed case with daughter (POA) and son in law - both verbalized their agreement to me for comfort cares. after comfort cares were initiated, the patient was made comfortable. at approximately 1600, O2 sats started to drop significantly. patient went into respiratory failure before sustaining asystole. Procedures Performed: none - Additional Data Confirmation of as documented by pronouncing clinician: no pulse, no respirations, no heart sounds, pupils fixed and dilated Family: contacted Attending/PCP notified: Yes Attending physician: Diaz Israel - Dr Israel was the on-call physician at patient's time of . Was code activated: No Autopsy requested: No Bag Checker notified: No Organ Bank notified: No Advance Directives: Yes Hospice patient: Yes
== END 2016-08-07 16:14 | disposition expired | DRG 190 ==
LOC: MS 15:37
PROVIDERS: ADMIT Allergy & Immunology; ATTEND Allergy & Immunology
DX: J44.0 Chronic obstructive pulmonary disease with (acute) lower respiratory infection (principal); J18.9 Pneumonia, unspecified organism; J96.90 Respiratory failure, unspecified, unspecified whether with hypoxia or hypercapnia; C34.90 Malignant neoplasm of unspecified part of unspecified bronchus or lung; C78.7 Secondary malignant neoplasm of liver and intrahepatic bile duct; F10.10 Alcohol abuse, uncomplicated; E86.0 Dehydration; R53.1 Weakness; R62.7 Adult failure to thrive; D72.829 Elevated white blood cell count, unspecified; I50.9 Heart failure, unspecified; I10 Essential (primary) hypertension; E78.5 Hyperlipidemia, unspecified; F10.20 Alcohol dependence, uncomplicated; Z99.81 Dependence on supplemental oxygen